=== PATIENT | male | born 1965 | race African-American/Black ===

== ENCOUNTER 2020-02-17 12:08 | Inpatient (IN) ==
[2020-02-17 13:30] LABS: Basophils # 0.1 10*3/uL (0.0-0.2); Basophils % 0.2 % (0.0-0.8); Eosinophils # 0.1 10*3/uL (0.0-0.87); Eosinophils % 0.6 % (0.00-10.9); Hematocrit 29.4 VOL% (42.0-52.0); Hemoglobin 9.4 GM/DL (14.0-18.0); Immature Granulocytes % 0.9 %; Lymphocytes # 0.4 10*3/uL (1.4-4.0); Lymphocytes % 1.8 % (21.2-54.2); Mean Corpuscular Volume 81.7 FL (87-102); Mean Platelet Volume 9.2 FL (9.6-12.0); Monocytes % 6.5 % (1.7-12.7); Platelet Count 385 T/CUMM (130-400); Red Cell Distribution Width 16.3 % (9.3-17.3); White Blood Count 21.6 T/CUMM (4-12)
[2020-02-17 13:54] LABS: Albumin 1.6 G/DL (3.4-5.0); Bilirubin,Total 0.8 MG/DL (0.2-1.0); Calcium 7.9 MG/DL (8.5-10.1); Osmolality,Calculated 283.7 MOS/KG (273-304); Total Protein 5.6 G/DL (6.4-8.3)
[2020-02-17] MEDS ORDERED: PIPERACILLIN/TAZOBACTAM 3,375 MG in SODIUM CHLORIDE 0.9% 100 ML IV STA (14:21)
[2020-02-17] MEDS ORDERED: VANCOMYCIN INJ 1,000 MG in SODIUM CHLORIDE 0.9% 250 ML IV STA (14:21)
[2020-02-17] MEDS ORDERED: FUROSEMIDE 40 MG/4 ML VIAL IV STA (14:26)
[2020-02-17] MEDS ORDERED: PIPERACILLIN/TAZOBACTAM 3,375 MG VIAL IV ONE (14:45)
[2020-02-17] MEDS ORDERED: VANCOMYCIN 1,000 MG VIAL ONE (14:45)
[2020-02-17] MEDS ORDERED: LIDOCAINE 1%/EPI INJ 20 ML VIAL ONE (15:11)
[2020-02-17] MEDS ORDERED: BUPIVACAINE MPF 0.25% 30 ML VIAL ONE ×2 (15:11→18:40)
[2020-02-17] MEDS ORDERED: ACETAMINOPHEN 325 MG TABLET PO PRN (16:06)
[2020-02-17] MEDS ORDERED: DOCUSATE SODIUM 100 MG CAPSULE PO PRN (16:06)
[2020-02-17] MEDS ORDERED: DEXTROSE 50% 25 GM/50 ML VIAL IV PRN (16:06)
[2020-02-17] MEDS ORDERED: CALCIUM CARBONATE CHEW 500 MG TABLET PO PRN (16:06)
[2020-02-17] MEDS ORDERED: LACTULOSE 20 GM/30 ML UDCUP PO PRN (16:06)
[2020-02-17] MEDS ORDERED: hydrALAZINE 20 MG/1 ML VIAL IV PRN (16:06)
[2020-02-17] MEDS ORDERED: ALUMINUM/MAGNES/SIMETH MAX STR 30 ML UDCUP PO PRN (16:06)
[2020-02-17] MEDS ORDERED: BISACODYL 5 MG TABLET PO PRN (16:06)
[2020-02-17] MEDS ORDERED: diphenhydrAMINE CAP 25 MG CAPSULE PO PRN (16:06)
[2020-02-17] MEDS ORDERED: SIMETHICONE CHEW 125 MG TABLET PO PRN (16:06)
[2020-02-17] MEDS ORDERED: ONDANSETRON 4 MG/2 ML VIAL IV PRN (16:06)
[2020-02-17] MEDS ORDERED: guaiFENesin/DM ER 600-30 MG TABLET PO PRN (16:06)
[2020-02-17] MEDS ORDERED: GLUCAGON 1 MG VIAL IM PRN (16:06)
[2020-02-17] MEDS ORDERED: ZALEPLON 5 MG CAPSULE PO PRN (16:06)
[2020-02-17] MEDS ORDERED: BUPIVACAINE 0.5% 50 ML VIAL ONE (16:31)
[2020-02-17 18:31] LABS: Band Neutrophils 2 % (0-10); Lymphocytes 1 % (20-55); Segmented Neutrophils 91 % (50-85); Total Cells Counted 100
[2020-02-17 18:32] LABS: Microcytosis Slight; Platelet Estimate Normal
[2020-02-17] MEDS ORDERED: propofoL 200 MG/20 ML VIAL IV ONE (18:38)
[2020-02-17] MEDS ORDERED: LIDOCAINE 2% 5 ML VIAL ONE (18:39)
[2020-02-17] MEDS ORDERED: fentaNYL 100 MCG/2 ML VIAL ONE (18:39)
[2020-02-17] MEDS ORDERED: MIDAZOLAM 2 MG/2 ML VIAL ONE (18:39)
[2020-02-17] MEDS ORDERED: DEXMEDETOMIDINE 200 MCG/2 ML VIAL ONE (18:40)
[2020-02-17] MEDS ORDERED: ETOMIDATE 40 MG/20 ML VIAL IV ONE (18:40)
[2020-02-17] MEDS ORDERED: DEXAMETHASONE 4 MG/1 ML VIAL ONE (18:40)
[2020-02-17] MEDS ORDERED: ONDANSETRON 4 MG/2 ML VIAL ONE (18:40)
[2020-02-17] MEDS ORDERED: KETOROLAC 30 MG/1 ML VIAL ONE (18:40)
[2020-02-17] MEDS ORDERED: SODIUM CHLORIDE 0.9% 250 ML IV ONE (18:41)
[2020-02-17] MEDS ORDERED: NALOXONE 0.4 MG/ML VIAL IV ONE ×2 (19:28→19:36)
[2020-02-17] MEDS ORDERED: VANCOMYCIN INJ 2,000 MG in SODIUM CHLORIDE 0.9% 500 ML IV PRN (19:58)
[2020-02-17] MEDS ORDERED: VANCOMYCIN INJ 1,500 MG in SODIUM CHLORIDE 0.9% 500 ML IV ONE (22:00)
[2020-02-18] MEDS: PIPERACILLIN/TAZOBACTAM 3,375 MG in SODIUM CHLORIDE 0.9% 100 ML IV SCH ×3 (01:06→18:44)
[2020-02-18 06:02] LABS: Basophils % 0.2 % (0.0-0.8); Hematocrit 29.4 VOL% (42.0-52.0); Hemoglobin 9.2 GM/DL (14.0-18.0); Immature Granulocytes % 1.5 %; Immature Granulocytes Absolute 0.28 #; Lymphocytes # 0.8 10*3/uL (1.4-4.0); Lymphocytes % 4.3 % (21.2-54.2); Mean Corpuscular HGB Conc 31.3 GM/DL (32-36); Mean Corpuscular Volume 83.3 FL (87-102); Mean Platelet Volume 9.8 FL (9.6-12.0); Monocytes % 6.3 % (1.7-12.7); Neutrophils % 87.7 % (38.7-73.9); Platelet Count 371 T/CUMM (130-400); Red Blood Count 3.53 MC/CUMM (3.8-5.5); Red Cell Distribution Width 16.8 % (9.3-17.3); White Blood Count 18.8 T/CUMM (4-12)
[2020-02-18 06:25] LABS: Band Neutrophils 2 % (0-10); Lymphocytes 4 % (20-55); Platelet Estimate Adequate; Segmented Neutrophils 88 % (50-85); Total Cells Counted 100
[2020-02-18 06:26] LABS: Acanthocytes Few; Hypochromasia 1+; Microcytosis Slight; Ovalocytes Slight
[2020-02-18 06:34] LABS: Albumin 1.3 G/DL (3.4-5.0); Bilirubin,Total 0.8 MG/DL (0.2-1.0); Calcium 8.2 MG/DL (8.5-10.1); Osmolality,Calculated 286.7 MOS/KG (273-304); Total Protein 5.8 G/DL (6.4-8.3)
[2020-02-18] MEDS: SODIUM HYPOCHLORITE 0.25% IRRIG 473 ML BOTTLE TOP SCH (10:07)
[2020-02-18] MEDS ORDERED: ASPIRIN EC 81 MG TABLET PO SCH (12:02)
[2020-02-18] MEDS ORDERED: ISOSORBIDE MONONITRATE 30 MG TABLET PO SCH (12:30)
[2020-02-18] MEDS ORDERED: ASPIRIN CHEW 81 MG TABLET PO ONE (12:58)
[2020-02-18] MEDS: carvediloL 6.25 MG TABLET PO SCH ×2 (13:00→20:24)
[2020-02-18] MEDS: POTASSIUM CHLORIDE 20 MEQ TABLET PO SCH (13:00)
[2020-02-18] MEDS: HEPARIN 5,000 UNIT/1 ML VIAL SUBCUT SCH ×2 (14:01→21:56)
[2020-02-18 15:59] LABS: Bilirubin,Urine Negative (Negative); Blood, Urine Negative (Negative); Glucose,Urine (UA) Negative (Negative); Ketones,Urine Negative (Negative); Mucus,Urine Moderate /LPF (Occasional); Nitrite,Urine Negative (Negative); Protein,Urine Negative; RBC,Urine 1 /HPF (0-4); Squamous Epithelial Cell,Urine Occasional /HPF (0-10); Urine Appearance CLEAR (Clear); Urine Color Yellow (Yellow); Urine Specific Gravity 1.024 (1.001-1.035); Urine Urobilinogen < 2.0 EU/DL (0.2-1.0); WBC,Urine 4 /HPF (0-6)
[2020-02-18] MEDS ORDERED: FUROSEMIDE 40 MG TABLET PO SCH ×2 (16:00→21:00)
[2020-02-18 17:14] LABS: Barbiturates Screen,Urine Negative (Negative); Benzodiazepines Screen,Urine Positive (Negative); Cannabinoid Screen,Urine Negative (Negative); Opiate Screen,Urine Negative (Negative); Phencyclidine Screen,Urine Negative (Negative)
[2020-02-18] MEDS: FUROSEMIDE 40 MG/4 ML VIAL IV SCH (17:29)
[2020-02-18] MEDS: TAMSULOSIN 0.4 MG CAPSULE PO SCH (20:22)
[2020-02-18] MEDS ORDERED: ROSUVASTATIN 20 MG TABLET PO SCH (21:00)
[2020-02-18] MEDS ORDERED: DEXTROSE 50% 25 GM/50 ML VIAL IV PRN (21:46)
[2020-02-19] MEDS: PIPERACILLIN/TAZOBACTAM 3,375 MG in SODIUM CHLORIDE 0.9% 100 ML IV SCH ×3 (01:55→18:03)
[2020-02-19] MEDS: HEPARIN 5,000 UNIT/1 ML VIAL SUBCUT SCH ×3 (05:15→21:50)
[2020-02-19 06:22] LABS: Basophils % 0.1 % (0.0-0.8); Hematocrit 32.4 VOL% (42.0-52.0); Hemoglobin 10.1 GM/DL (14.0-18.0); Immature Granulocytes Absolute 0.22 #; Lymphocytes # 1.1 10*3/uL (1.4-4.0); Lymphocytes % 5.3 % (21.2-54.2); Mean Corpuscular HGB Conc 31.2 GM/DL (32-36); Mean Corpuscular Volume 83.5 FL (87-102); Mean Platelet Volume 9.4 FL (9.6-12.0); Monocytes % 6.8 % (1.7-12.7); Neutrophils % 86.8 % (38.7-73.9); Platelet Count 431 T/CUMM (130-400); Red Blood Count 3.88 MC/CUMM (3.8-5.5); Red Cell Distribution Width 16.9 % (9.3-17.3); White Blood Count 21.1 T/CUMM (4-12)
[2020-02-19 06:47] LABS: Acanthocytes Few; Hypochromasia 1+; Lymphocytes 8 % (20-55); Microcytosis 1+; Ovalocytes Slight; Platelet Estimate Adequate; Segmented Neutrophils 84 % (50-85); Total Cells Counted 100
[2020-02-19 06:48] LABS: Calcium 7.7 MG/DL (8.5-10.1); Osmolality,Calculated 284.8 MOS/KG (273-304)
[2020-02-19 06:51] LABS: Albumin 1.2 G/DL (3.4-5.0); Bilirubin,Total 0.7 MG/DL (0.2-1.0); Calcium 7.8 MG/DL (8.5-10.1); Osmolality,Calculated 287.7 MOS/KG (273-304); Total Protein 5.2 G/DL (6.4-8.3)
[2020-02-19] MEDS: POTASSIUM CHLORIDE 20 MEQ TABLET PO SCH (09:30)
[2020-02-19] MEDS: ASPIRIN EC 81 MG TABLET PO SCH (09:30)
[2020-02-19] MEDS: carvediloL 6.25 MG TABLET PO SCH ×2 (09:30→21:43)
[2020-02-19] MEDS: FINASTERIDE 5 MG TABLET PO SCH (09:30)
[2020-02-19] MEDS: FUROSEMIDE 40 MG/4 ML VIAL IV SCH (09:38)
[2020-02-19] MEDS: SODIUM HYPOCHLORITE 0.25% IRRIG 473 ML BOTTLE TOP SCH (09:38)
[2020-02-19] MEDS: MORPHINE 4 MG/1 ML VIAL IV PRN (15:59)
[2020-02-19] MEDS ORDERED: FUROSEMIDE 40 MG TABLET PO SCH (16:00)
[2020-02-19] MEDS ORDERED: HEPARIN/NACL 0.9% 2 UNITS/ML 500 ML IV ONE (19:04)
[2020-02-19] MEDS ORDERED: fentaNYL INJ 1,250 MCG in SODIUM CHLORIDE 0.9% 225 ML IV PRN (21:04)
[2020-02-19] MEDS ORDERED: LIDOCAINE 2% 5 ML VIAL ONE (21:12)
[2020-02-19] MEDS ORDERED: MIDAZOLAM 2 MG/2 ML VIAL ONE (21:12)
[2020-02-19] MEDS ORDERED: fentaNYL 100 MCG/2 ML VIAL ONE (21:12)
[2020-02-19] MEDS ORDERED: ePHEDrine 50 MG/ML VIAL ONE (21:13)
[2020-02-19] MEDS ORDERED: propofoL 200 MG/20 ML VIAL IV ONE (21:13)
[2020-02-19] MEDS ORDERED: SEVOFLURANE 1 UNIT/15 MINUTE INH ONE (21:13)
[2020-02-19] MEDS ORDERED: ROCURONIUM 100 MG/10 ML VIAL IV ONE (21:14)
[2020-02-19] MEDS ORDERED: ETOMIDATE 40 MG/20 ML VIAL IV ONE (21:14)
[2020-02-19] MEDS ORDERED: SODIUM CHLORIDE 0.9% 1,000 ML IV ONE (21:14)
[2020-02-19] MEDS ORDERED: SUCCINYLCHOLINE 200 MG/10 ML VIAL ONE (21:14)
[2020-02-19] MEDS ORDERED: LACTATED RINGERS 1,000 ML IV ONE (21:14)
[2020-02-19 21:19] LABS: ABG Base Excess -11.6 MMOL/L (-2.5-2.5); ABG HCO3 14.8 MMOL/L (20-26); ABG Oxygen Saturation 99.3 % (95-100); ABG PCO2 35.1 MM HG (35-48); ABG PH 7.242 (7.35-7.45); ABG PO2 283.2 MM HG (80-95); ABG TCO2 15.8 MMOL/L (23-27)
[2020-02-19] MEDS ORDERED: PIPERACILLIN/TAZOBACTAM 3,375 MG in SODIUM CHLORIDE 0.9% 100 ML IV SCH (21:30)
[2020-02-19] MEDS ORDERED: SODIUM BICARBONATE 50 MEQ/50 ML VIAL IV ONE ×2 (21:32→21:33)
[2020-02-19] MEDS: TAMSULOSIN 0.4 MG CAPSULE PO SCH (21:43)
[2020-02-19] MEDS: LACTATED RINGERS 1,000 ML IV SCH (21:43)
[2020-02-19] MEDS: PANTOPRAZOLE 40 MG VIAL IV SCH (21:43)
[2020-02-20] MEDS: PIPERACILLIN/TAZOBACTAM 3,375 MG in SODIUM CHLORIDE 0.9% 100 ML IV SCH ×2 (01:45→14:15)
[2020-02-20 03:23] LABS: ABG Base Excess -9.3 MMOL/L (-2.5-2.5); ABG HCO3 17.1 MMOL/L (20-26); ABG PCO2 34.1 MM HG (35-48); ABG PH 7.293 (7.35-7.45); ABG TCO2 14.8 MMOL/L (23-27)
[2020-02-20 03:39] LABS: Basophils % 0.4 % (0.0-0.8); Hematocrit 37.7 VOL% (42.0-52.0); Hemoglobin 11.6 GM/DL (14.0-18.0); Immature Granulocytes % 0.3 %; Immature Granulocytes Absolute 0.03 #; Lymphocytes # 0.6 10*3/uL (1.4-4.0); Lymphocytes % 5.3 % (21.2-54.2); Mean Corpuscular HGB Conc 30.8 GM/DL (32-36); Mean Corpuscular Volume 82.3 FL (87-102); Mean Platelet Volume 9.3 FL (9.6-12.0); Monocytes % 5.5 % (1.7-12.7); Neutrophils % 88.5 % (38.7-73.9); Platelet Count 442 T/CUMM (130-400); Red Blood Count 4.58 MC/CUMM (3.8-5.5); White Blood Count 11.1 T/CUMM (4-12)
[2020-02-20 03:41] LABS: Albumin 1.2 G/DL (3.4-5.0); Bilirubin,Total 0.4 MG/DL (0.2-1.0); Calcium 7.5 MG/DL (8.5-10.1); Osmolality,Calculated 293.4 MOS/KG (273-304); Total Protein 5.3 G/DL (6.4-8.3)
[2020-02-20 04:02] LABS: Lymphocytes 6 % (20-55); Platelet Estimate Adequate; Segmented Neutrophils 89 % (50-85); Total Cells Counted 100
[2020-02-20 04:03] LABS: Acanthocytes Few; Hypochromasia Slight
[2020-02-20] MEDS: HEPARIN 5,000 UNIT/1 ML VIAL SUBCUT SCH ×3 (06:02→22:23)
[2020-02-20] MEDS: LACTATED RINGERS 1,000 ML IV SCH ×2 (06:53→16:53)
[2020-02-20] MEDS: ASPIRIN EC 81 MG TABLET PO SCH (08:04)
[2020-02-20] MEDS: carvediloL 6.25 MG TABLET PO SCH ×2 (08:04→22:11)
[2020-02-20] MEDS: POTASSIUM CHLORIDE 20 MEQ TABLET PO SCH (08:04)
[2020-02-20] MEDS: FINASTERIDE 5 MG TABLET PO SCH (08:05)
[2020-02-20] MEDS: PANTOPRAZOLE 40 MG VIAL IV SCH ×2 (08:19→22:23)
[2020-02-20] MEDS: SODIUM HYPOCHLORITE 0.25% IRRIG 473 ML BOTTLE TOP SCH (08:20)
[2020-02-20 08:24] LABS: ABG Base Excess -8.6 MMOL/L (-2.5-2.5); ABG HCO3 17.6 MMOL/L (20-26); ABG PCO2 36.9 MM HG (35-48); ABG PH 7.283 (7.35-7.45); ABG TCO2 15.8 MMOL/L (23-27)
[2020-02-20] MEDS: PHENYLEPHRINE DRIP 40 MG/250 ML PREMIX IV PRN (08:52)
[2020-02-20 13:06] LABS: ABG Base Excess -8.3 MMOL/L (-2.5-2.5); ABG HCO3 17.8 MMOL/L (20-26); ABG Oxygen Saturation 99.1 % (95-100); ABG PCO2 37.3 MM HG (35-48); ABG PH 7.285 (7.35-7.45); ABG TCO2 15.9 MMOL/L (23-27)
[2020-02-20] MEDS: TAMSULOSIN 0.4 MG CAPSULE PO SCH (22:11)
[2020-02-20] MEDS: MORPHINE 4 MG/1 ML VIAL IV PRN (22:32)
[2020-02-21] MEDS: PIPERACILLIN/TAZOBACTAM 3,375 MG in SODIUM CHLORIDE 0.9% 100 ML IV SCH ×2 (02:53→14:17)
[2020-02-21] MEDS: LACTATED RINGERS 1,000 ML IV SCH ×2 (04:39→14:07)
[2020-02-21 04:43] LABS: Basophils % 0.2 % (0.0-0.8); Eosinophils % 0.1 % (0.00-10.9); Hematocrit 37.8 VOL% (42.0-52.0); Hemoglobin 11.6 GM/DL (14.0-18.0); Immature Granulocytes % 2.2 %; Immature Granulocytes Absolute 0.45 #; Lymphocytes # 0.8 10*3/uL (1.4-4.0); Lymphocytes % 3.6 % (21.2-54.2); Mean Corpuscular HGB Conc 30.7 GM/DL (32-36); Mean Corpuscular Volume 82.4 FL (87-102); Mean Platelet Volume 9.2 FL (9.6-12.0); Monocytes % 5.4 % (1.7-12.7); Neutrophils % 88.5 % (38.7-73.9); Platelet Count 523 T/CUMM (130-400); Red Blood Count 4.59 MC/CUMM (3.8-5.5); Red Cell Distribution Width 17.1 % (9.3-17.3); White Blood Count 20.8 T/CUMM (4-12)
[2020-02-21 05:11] LABS: Band Neutrophils 5 % (0-10); Lymphocytes 6 % (20-55); Platelet Estimate Adequate; Segmented Neutrophils 84 % (50-85); Total Cells Counted 100
[2020-02-21 05:12] LABS: Hypochromasia Slight
[2020-02-21 05:22] LABS: Albumin 1.1 G/DL (3.4-5.0); Bilirubin,Total 0.4 MG/DL (0.2-1.0); Calcium 7.6 MG/DL (8.5-10.1); Osmolality,Calculated 291.4 MOS/KG (273-304); Total Protein 5.4 G/DL (6.4-8.3)
[2020-02-21] MEDS: HEPARIN 5,000 UNIT/1 ML VIAL SUBCUT SCH ×3 (05:24→23:12)
[2020-02-21] MEDS: ALBUMIN 25% 25 GM in PREMIX 1 EACH IV SCH ×2 (05:24→12:58)
[2020-02-21] MEDS: PANTOPRAZOLE 40 MG VIAL IV SCH ×2 (09:19→23:11)
[2020-02-21] MEDS: ASPIRIN EC 81 MG TABLET PO SCH (09:40)
[2020-02-21] MEDS: FINASTERIDE 5 MG TABLET PO SCH (09:40)
[2020-02-21] MEDS: carvediloL 6.25 MG TABLET PO SCH ×2 (09:40→20:56)
[2020-02-21] MEDS: POTASSIUM CHLORIDE 20 MEQ TABLET PO SCH (09:40)
[2020-02-21] MEDS: SODIUM HYPOCHLORITE 0.25% IRRIG 473 ML BOTTLE TOP SCH (09:41)
[2020-02-21] MEDS: HYDROmorphone 2 MG/1 ML VIAL IV PRN (12:55)
[2020-02-21] MEDS: PHENYLEPHRINE DRIP 40 MG/250 ML PREMIX IV PRN (14:00)
[2020-02-21] MEDS: ALBUTEROL 1.25 MG/3 ML NEB RESP TX SCH ×2 (14:13→19:43)
[2020-02-21] MEDS: TAMSULOSIN 0.4 MG CAPSULE PO SCH (20:57)
[2020-02-22] MEDS: LACTATED RINGERS 1,000 ML IV SCH ×3 (00:01→20:14)
[2020-02-22] MEDS: HYDROmorphone 2 MG/1 ML VIAL IV PRN ×2 (00:02→04:27)
[2020-02-22] MEDS: ALBUTEROL 1.25 MG/3 ML NEB RESP TX SCH ×4 (01:26→19:55)
[2020-02-22] MEDS: PIPERACILLIN/TAZOBACTAM 3,375 MG in SODIUM CHLORIDE 0.9% 100 ML IV SCH ×2 (01:53→14:20)
[2020-02-22 04:54] LABS: Basophils % 0.1 % (0.0-0.8); Eosinophils % 0.1 % (0.00-10.9); Hematocrit 29.9 VOL% (42.0-52.0); Immature Granulocytes % 3.6 %; Immature Granulocytes Absolute 0.51 #; Lymphocytes % 7.2 % (21.2-54.2); Mean Corpuscular HGB Conc 30.4 GM/DL (32-36); Mean Platelet Volume 9.1 FL (9.6-12.0); Monocytes % 6.6 % (1.7-12.7); Neutrophils % 82.4 % (38.7-73.9); Red Cell Distribution Width 17.2 % (9.3-17.3); White Blood Count 14.1 T/CUMM (4-12)
[2020-02-22 04:55] LABS: Hemoglobin 9.1 GM/DL (14.0-18.0); Platelet Count 392 T/CUMM (130-400); Red Blood Count 3.56 MC/CUMM (3.8-5.5)
[2020-02-22 05:10] LABS: Albumin 1.3 G/DL (3.4-5.0); Bilirubin,Total 0.4 MG/DL (0.2-1.0); Calcium 7.3 MG/DL (8.5-10.1); Osmolality,Calculated 292.3 MOS/KG (273-304)
[2020-02-22 05:33] LABS: Band Neutrophils 2 % (0-10); Lymphocytes 4 % (20-55); Segmented Neutrophils 86 % (50-85); Total Cells Counted 100
[2020-02-22 05:34] LABS: Acanthocytes Few
[2020-02-22 05:35] LABS: Burr Cells 1+; Hypochromasia 1+; Microcytosis 1+; Platelet Estimate Normal
[2020-02-22] MEDS: HEPARIN 5,000 UNIT/1 ML VIAL SUBCUT SCH ×2 (05:58→14:20)
[2020-02-22] MEDS: SODIUM HYPOCHLORITE 0.25% IRRIG 473 ML BOTTLE TOP SCH (10:05)
[2020-02-22] MEDS: ASPIRIN EC 81 MG TABLET PO SCH (10:10)
[2020-02-22] MEDS: carvediloL 6.25 MG TABLET PO SCH ×2 (10:10→20:13)
[2020-02-22] MEDS: POTASSIUM CHLORIDE 20 MEQ TABLET PO SCH (10:11)
[2020-02-22] MEDS: PANTOPRAZOLE 40 MG VIAL IV SCH ×2 (10:11→20:13)
[2020-02-22] MEDS: FINASTERIDE 5 MG TABLET PO SCH (10:11)
[2020-02-22] MEDS: TAMSULOSIN 0.4 MG CAPSULE PO SCH (20:13)
[2020-02-23] MEDS: HEPARIN 5,000 UNIT/1 ML VIAL SUBCUT SCH ×4 (00:30→21:14)
[2020-02-23] MEDS: ALBUTEROL 1.25 MG/3 ML NEB RESP TX SCH ×4 (01:22→19:59)
[2020-02-23] MEDS: PIPERACILLIN/TAZOBACTAM 3,375 MG in SODIUM CHLORIDE 0.9% 100 ML IV SCH ×2 (02:07→17:11)
[2020-02-23] MEDS: HYDROmorphone 2 MG/1 ML VIAL IV PRN ×2 (03:01→06:53)
[2020-02-23 04:55] LABS: Basophils % 0.2 % (0.0-0.8); Eosinophils # 0.1 10*3/uL (0.0-0.87); Eosinophils % 0.8 % (0.00-10.9); Hematocrit 31.2 VOL% (42.0-52.0); Hemoglobin 9.9 GM/DL (14.0-18.0); Immature Granulocytes % 1.4 %; Immature Granulocytes Absolute 0.13 #; Lymphocytes % 9.9 % (21.2-54.2); Mean Corpuscular HGB Conc 31.7 GM/DL (32-36); Mean Corpuscular Volume 79.8 FL (87-102); Mean Platelet Volume 9.1 FL (9.6-12.0); Monocytes % 7.4 % (1.7-12.7); Neutrophils % 80.3 % (38.7-73.9); Platelet Count 416 T/CUMM (130-400); Red Blood Count 3.91 MC/CUMM (3.8-5.5); Red Cell Distribution Width 17.2 % (9.3-17.3); White Blood Count 9.6 T/CUMM (4-12)
[2020-02-23 05:18] LABS: Albumin 1.4 G/DL (3.4-5.0); Bilirubin,Total 0.6 MG/DL (0.2-1.0); Calcium 7.8 MG/DL (8.5-10.1); Osmolality,Calculated 297.3 MOS/KG (273-304); Total Protein 5.8 G/DL (6.4-8.3)
[2020-02-23] MEDS ORDERED: ALBUTEROL 1.25 MG/3 ML NEB RESP TX ONE ×3 (07:04→22:36)
[2020-02-23] MEDS: PANTOPRAZOLE 40 MG VIAL IV SCH ×2 (09:13→21:13)
[2020-02-23] MEDS: ASPIRIN EC 81 MG TABLET PO SCH (09:14)
[2020-02-23] MEDS: FINASTERIDE 5 MG TABLET PO SCH (09:14)
[2020-02-23] MEDS: POTASSIUM CHLORIDE 20 MEQ TABLET PO SCH (09:14)
[2020-02-23] MEDS: carvediloL 6.25 MG TABLET PO SCH ×2 (09:15→21:14)
[2020-02-23] MEDS: LACTATED RINGERS 1,000 ML IV SCH (09:20)
[2020-02-23] MEDS: SODIUM HYPOCHLORITE 0.25% IRRIG 473 ML BOTTLE TOP SCH (10:38)
[2020-02-23] MEDS: TAMSULOSIN 0.4 MG CAPSULE PO SCH (21:14)
[2020-02-24] MEDS: PIPERACILLIN/TAZOBACTAM 3,375 MG in SODIUM CHLORIDE 0.9% 100 ML IV SCH ×2 (01:37→13:41)
[2020-02-24] MEDS: ALBUTEROL 1.25 MG/3 ML NEB RESP TX SCH ×4 (01:53→19:19)
[2020-02-24 06:57] LABS: Basophils % 0.1 % (0.0-0.8); Eosinophils # 0.1 10*3/uL (0.0-0.87); Eosinophils % 1.6 % (0.00-10.9); Hematocrit 29.5 VOL% (42.0-52.0); Hemoglobin 9.5 GM/DL (14.0-18.0); Immature Granulocytes % 1.9 %; Immature Granulocytes Absolute 0.16 #; Lymphocytes # 1.2 10*3/uL (1.4-4.0); Lymphocytes % 13.7 % (21.2-54.2); Mean Corpuscular HGB Conc 32.2 GM/DL (32-36); Mean Corpuscular Volume 80.6 FL (87-102); Mean Platelet Volume 9.1 FL (9.6-12.0); Monocytes % 9.7 % (1.7-12.7); Platelet Count 412 T/CUMM (130-400); Red Blood Count 3.66 MC/CUMM (3.8-5.5); Red Cell Distribution Width 17.2 % (9.3-17.3); White Blood Count 8.5 T/CUMM (4-12)
[2020-02-24] MEDS: HYDROmorphone 2 MG/1 ML VIAL IV PRN ×2 (06:57→17:46)
[2020-02-24] MEDS: HEPARIN 5,000 UNIT/1 ML VIAL SUBCUT SCH ×3 (06:58→20:48)
[2020-02-24 07:14] LABS: Calcium 8.4 MG/DL (8.5-10.1); Osmolality,Calculated 298.1 MOS/KG (273-304)
[2020-02-24] MEDS ORDERED: ALBUTEROL 1.25 MG/3 ML NEB RESP TX ONE (07:19)
[2020-02-24] MEDS: ASPIRIN EC 81 MG TABLET PO SCH (08:20)
[2020-02-24] MEDS: carvediloL 6.25 MG TABLET PO SCH ×2 (08:20→20:50)
[2020-02-24] MEDS: PANTOPRAZOLE 40 MG VIAL IV SCH ×2 (08:20→20:50)
[2020-02-24] MEDS: FINASTERIDE 5 MG TABLET PO SCH (08:20)
[2020-02-24] MEDS: LACTATED RINGERS 1,000 ML IV SCH ×2 (08:21→08:26)
[2020-02-24] MEDS: SODIUM HYPOCHLORITE 0.25% IRRIG 473 ML BOTTLE TOP SCH (14:38)
[2020-02-24] MEDS: TAMSULOSIN 0.4 MG CAPSULE PO SCH (20:49)
[2020-02-25] MEDS: ALBUTEROL 1.25 MG/3 ML NEB RESP TX SCH ×4 (00:24→19:05)
[2020-02-25] MEDS: PIPERACILLIN/TAZOBACTAM 3,375 MG in SODIUM CHLORIDE 0.9% 100 ML IV SCH (01:35)
[2020-02-25] MEDS: HEPARIN 5,000 UNIT/1 ML VIAL SUBCUT SCH ×3 (05:18→21:09)
[2020-02-25 06:24] LABS: Basophils % 0.2 % (0.0-0.8); Eosinophils # 0.2 10*3/uL (0.0-0.87); Eosinophils % 1.9 % (0.00-10.9); Hematocrit 28.5 VOL% (42.0-52.0); Hemoglobin 9.1 GM/DL (14.0-18.0); Immature Granulocytes % 1.2 %; Immature Granulocytes Absolute 0.11 #; Lymphocytes # 1.1 10*3/uL (1.4-4.0); Mean Corpuscular HGB Conc 31.9 GM/DL (32-36); Mean Corpuscular Volume 81.9 FL (87-102); Mean Platelet Volume 8.9 FL (9.6-12.0); Monocytes % 8.6 % (1.7-12.7); Neutrophils % 76.1 % (38.7-73.9); Platelet Count 361 T/CUMM (130-400); Red Blood Count 3.48 MC/CUMM (3.8-5.5); Red Cell Distribution Width 17.1 % (9.3-17.3); White Blood Count 9.4 T/CUMM (4-12)
[2020-02-25 06:47] LABS: Calcium 8.4 MG/DL (8.5-10.1); Osmolality,Calculated 297.3 MOS/KG (273-304)
[2020-02-25] MEDS ORDERED: CLARITHROMYCIN 500 MG TABLET PO SCH (09:30)
[2020-02-25] MEDS: ASPIRIN EC 81 MG TABLET PO SCH (09:42)
[2020-02-25] MEDS: PANTOPRAZOLE 40 MG VIAL IV SCH ×2 (09:42→21:09)
[2020-02-25] MEDS: FINASTERIDE 5 MG TABLET PO SCH (09:42)
[2020-02-25] MEDS: carvediloL 6.25 MG TABLET PO SCH ×2 (09:42→21:09)
[2020-02-25] MEDS: SODIUM HYPOCHLORITE 0.25% IRRIG 473 ML BOTTLE TOP SCH (09:43)
[2020-02-25] MEDS: AMOXICILLIN 500 MG CAPSULE PO SCH ×2 (12:02→21:07)
[2020-02-25] MEDS: CLARITHROMYCIN 500 MG TABLET PO SCH ×2 (12:02→21:08)
[2020-02-25] MEDS: TAMSULOSIN 0.4 MG CAPSULE PO SCH (21:09)
[2020-02-25] MEDS: SODIUM BICARBONATE 650 MG TABLET PO SCH (21:09)
[2020-02-26] MEDS: ALBUTEROL 1.25 MG/3 ML NEB RESP TX SCH ×5 (00:35→18:55)
[2020-02-26] MEDS: HEPARIN 5,000 UNIT/1 ML VIAL SUBCUT SCH ×3 (07:41→23:14)
[2020-02-26] MEDS: carvediloL 6.25 MG TABLET PO SCH ×2 (09:16→23:11)
[2020-02-26] MEDS: AMOXICILLIN 500 MG CAPSULE PO SCH ×2 (09:16→23:11)
[2020-02-26] MEDS: CLARITHROMYCIN 500 MG TABLET PO SCH ×2 (09:16→23:12)
[2020-02-26] MEDS: ASPIRIN EC 81 MG TABLET PO SCH (09:16)
[2020-02-26] MEDS: SODIUM BICARBONATE 650 MG TABLET PO SCH ×2 (09:16→23:10)
[2020-02-26] MEDS: FINASTERIDE 5 MG TABLET PO SCH (09:16)
[2020-02-26] MEDS: PANTOPRAZOLE 40 MG VIAL IV SCH ×2 (09:18→23:10)
[2020-02-26] MEDS: SODIUM HYPOCHLORITE 0.25% IRRIG 473 ML BOTTLE TOP SCH (09:19)
[2020-02-26] MEDS: TAMSULOSIN 0.4 MG CAPSULE PO SCH (23:10)
[2020-02-27] MEDS: ALBUTEROL 1.25 MG/3 ML NEB RESP TX SCH ×4 (01:50→18:54)
[2020-02-27] MEDS: HEPARIN 5,000 UNIT/1 ML VIAL SUBCUT SCH ×3 (05:15→22:57)
[2020-02-27] MEDS: AMOXICILLIN 500 MG CAPSULE PO SCH ×2 (09:17→22:54)
[2020-02-27] MEDS: CLARITHROMYCIN 500 MG TABLET PO SCH ×2 (09:17→22:54)
[2020-02-27] MEDS: SODIUM BICARBONATE 650 MG TABLET PO SCH ×2 (09:18→22:55)
[2020-02-27] MEDS: carvediloL 6.25 MG TABLET PO SCH ×2 (09:18→22:56)
[2020-02-27] MEDS: PANTOPRAZOLE 40 MG VIAL IV SCH ×2 (09:18→22:50)
[2020-02-27] MEDS: ASPIRIN EC 81 MG TABLET PO SCH (09:18)
[2020-02-27] MEDS: MULTIVITAMIN (CENTRUM) TABLET PO SCH (09:18)
[2020-02-27] MEDS: FINASTERIDE 5 MG TABLET PO SCH (09:18)
[2020-02-27] MEDS: SODIUM HYPOCHLORITE 0.25% IRRIG 473 ML BOTTLE TOP SCH (09:19)
[2020-02-27] MEDS: FUROSEMIDE 40 MG/4 ML VIAL IV SCH (15:43)
[2020-02-27] MEDS: TAMSULOSIN 0.4 MG CAPSULE PO SCH (22:56)
[2020-02-28] MEDS: ALBUTEROL 1.25 MG/3 ML NEB RESP TX SCH ×3 (00:48→13:15)
[2020-02-28 04:52] LABS: Basophils % 0.3 % (0.0-0.8); Eosinophils # 0.3 10*3/uL (0.0-0.87); Eosinophils % 2.3 % (0.00-10.9); Hematocrit 29.2 VOL% (42.0-52.0); Hemoglobin 8.8 GM/DL (14.0-18.0); Immature Granulocytes % 1.3 %; Immature Granulocytes Absolute 0.14 #; Lymphocytes # 1.1 10*3/uL (1.4-4.0); Lymphocytes % 10.5 % (21.2-54.2); Mean Corpuscular HGB Conc 30.1 GM/DL (32-36); Mean Corpuscular Volume 84.1 FL (87-102); Mean Platelet Volume 9.3 FL (9.6-12.0); Monocytes % 7.6 % (1.7-12.7); Platelet Count 327 T/CUMM (130-400); Red Blood Count 3.47 MC/CUMM (3.8-5.5); Red Cell Distribution Width 16.7 % (9.3-17.3); White Blood Count 10.7 T/CUMM (4-12)
[2020-02-28 05:12] LABS: Calcium 8.1 MG/DL (8.5-10.1); Osmolality,Calculated 294.3 MOS/KG (273-304)
[2020-02-28] MEDS: HEPARIN 5,000 UNIT/1 ML VIAL SUBCUT SCH ×2 (05:24→13:51)
[2020-02-28] MEDS: AMOXICILLIN 500 MG CAPSULE PO SCH (08:38)
[2020-02-28] MEDS: FINASTERIDE 5 MG TABLET PO SCH (08:38)
[2020-02-28] MEDS: CLARITHROMYCIN 500 MG TABLET PO SCH (08:38)
[2020-02-28] MEDS: ASPIRIN EC 81 MG TABLET PO SCH (08:39)
[2020-02-28] MEDS: carvediloL 6.25 MG TABLET PO SCH (08:39)
[2020-02-28] MEDS: MULTIVITAMIN (CENTRUM) TABLET PO SCH (08:39)
[2020-02-28] MEDS: PANTOPRAZOLE 40 MG VIAL IV SCH (08:40)
[2020-02-28] MEDS: FUROSEMIDE 40 MG/4 ML VIAL IV SCH ×2 (08:42→18:06)
[2020-02-28] MEDS: SODIUM HYPOCHLORITE 0.25% IRRIG 473 ML BOTTLE TOP SCH (08:42)
[2020-02-28] MEDS: SODIUM BICARBONATE 650 MG TABLET PO SCH (10:38)
[2020-02-28 17:01] VITALS: BP 148/82
[2020-02-28] MEDS ORDERED: PANTOPRAZOLE 40 MG TABLET PO SCH (21:00)
== END 2020-02-28 18:08 | disposition swing bed (61) | DRG 853 ==
LOC: N.ED 12:08 → SUATTDRO 15:19 → N.EDINP 15:19 → N.3E 17:00 → N.ICU 02-19 20:10 → N.5E 02-22 15:03
PROVIDERS: ADMIT Hospitalist; ATTEND Internal Medicine

== ENCOUNTER 2021-07-02 14:53 | Inpatient (IN) ==
[2021-07-02 15:22] LABS: Basophils # 0.1 10*3/uL (0.0-0.2); Basophils % 1.4 % (0.0-0.8); Eosinophils # 0.2 10*3/uL (0.0-0.87); Hematocrit 33.8 VOL% (42.0-52.0); Hemoglobin 10.4 GM/DL (14.0-18.0); Immature Granulocytes % 0.3 %; Immature Granulocytes Absolute 0.02 #; Lymphocytes # 1.2 10*3/uL (1.4-4.0); Lymphocytes % 20.6 % (21.2-54.2); Mean Corpuscular HGB Conc 30.8 GM/DL (32-36); Mean Corpuscular Volume 88.3 FL (87-102); Mean Platelet Volume 9.7 FL (9.6-12.0); Monocytes % 9.4 % (1.7-12.7); Neutrophils % 65.3 % (38.7-73.9); Platelet Count 287 T/CUMM (130-400); Red Blood Count 3.83 MC/CUMM (3.8-5.5); Red Cell Distribution Width 14.4 % (9.3-17.3); White Blood Count 5.7 T/CUMM (4-12)
[2021-07-02 15:32] LABS: INR 1.1; PT Patient Result 12.6 SECS (10.5-12.0); Partial Thromboplastin Time 27.1 SECS (23.8-32.1)
[2021-07-02 15:49] LABS: Bilirubin,Total 0.4 MG/DL (0.20-1.00); Calcium 8.8 MG/DL (8.5-10.1); Osmolality,Calculated 299.5 MOS/KG (273-304); Potassium 4.4 MMOL/L (3.5-5.1); Total Protein 6.4 G/DL (6.4-8.2)
[2021-07-02] MEDS ORDERED: hydrALAZINE 20 MG/1 ML VIAL IV STA (19:25)
[2021-07-02] MEDS ORDERED: FUROSEMIDE 40 MG/4 ML VIAL IV STA (19:25)
[2021-07-02 19:42] LABS: ABG Base Excess -9.4 MMOL/L (-2.5-2.5); ABG HCO3 16.9 MMOL/L (20-26); ABG Oxygen Saturation 97.7 % (95-100); ABG PCO2 25.6 MM HG (35-48); ABG PH 7.366 (7.35-7.45); ABG PO2 97.6 MM HG (80-95); ABG TCO2 13.3 MMOL/L (23-27)
[2021-07-02] MEDS ORDERED: GLUCAGON 1 MG VIAL IM PRN (21:21)
[2021-07-02] MEDS: HEPARIN 5,000 UNIT/1 ML VIAL SUBCUT SCH (22:25)
[2021-07-02] MEDS ORDERED: DEXTROSE 10% 250 ML BAG IV PRN (22:40)
[2021-07-02] MEDS: carvediloL 12.5 MG TABLET PO SCH (23:39)
[2021-07-03 01:06] LABS: Basophils # 0.1 10*3/uL (0.0-0.2); Basophils % 1.5 % (0.0-0.8); Eosinophils # 0.2 10*3/uL (0.0-0.87); Hematocrit 36.1 VOL% (42.0-52.0); Hemoglobin 11.1 GM/DL (14.0-18.0); Immature Granulocytes % 0.5 %; Immature Granulocytes Absolute 0.03 #; Lymphocytes # 1.4 10*3/uL (1.4-4.0); Lymphocytes % 22.5 % (21.2-54.2); Mean Corpuscular HGB Conc 30.7 GM/DL (32-36); Mean Platelet Volume 9.3 FL (9.6-12.0); Monocytes % 10.9 % (1.7-12.7); Neutrophils % 60.6 % (38.7-73.9); Platelet Count 312 T/CUMM (130-400); Red Cell Distribution Width 14.3 % (9.3-17.3); White Blood Count 6.1 T/CUMM (4-12)
[2021-07-03 01:31] LABS: Bilirubin,Total 0.6 MG/DL (0.20-1.00); Calcium 9.2 MG/DL (8.5-10.1); Osmolality,Calculated 297.5 MOS/KG (273-304); Potassium 4.2 MMOL/L (3.5-5.1); Total Protein 7.1 G/DL (6.4-8.2)
[2021-07-03] MEDS: INSULIN LISPRO 100 UNIT/ML SUBCUT SCH ×4 (08:10→21:56)
[2021-07-03] MEDS: ISOSORBIDE MONONITRATE 30 MG TABLET PO SCH (08:40)
[2021-07-03] MEDS: carvediloL 12.5 MG TABLET PO SCH ×2 (08:40→20:44)
[2021-07-03] MEDS: PANTOPRAZOLE 40 MG TABLET PO SCH (08:40)
[2021-07-03] MEDS: hydrALAZINE 25 MG TABLET PO SCH ×3 (08:40→20:44)
[2021-07-03] MEDS: HEPARIN 5,000 UNIT/1 ML VIAL SUBCUT SCH ×3 (08:41→21:57)
[2021-07-03] MEDS: SPIRONOLACTONE 50 MG TABLET PO SCH (08:48)
[2021-07-03] MEDS: FUROSEMIDE 40 MG/4 ML VIAL IV SCH (08:49)
[2021-07-03] MEDS ORDERED: SODIUM BICARBONATE 650 MG TABLET PO SCH (09:00)
[2021-07-03] MEDS: SODIUM BICARBONATE 650 MG TABLET PO SCH (20:44)
[2021-07-03] MEDS: TAMSULOSIN 0.4 MG CAPSULE PO SCH (20:44)
[2021-07-04 05:59] LABS: Basophils % 0.8 % (0.0-0.8); Eosinophils # 0.2 10*3/uL (0.0-0.87); Eosinophils % 4.4 % (0.00-10.9); Immature Granulocytes % 0.2 %; Immature Granulocytes Absolute 0.01 #; Lymphocytes # 1.1 10*3/uL (1.4-4.0); Lymphocytes % 19.9 % (21.2-54.2); Mean Corpuscular HGB Conc 31.4 GM/DL (32-36); Mean Corpuscular Volume 87.6 FL (87-102); Mean Platelet Volume 9.5 FL (9.6-12.0); Monocytes % 11.9 % (1.7-12.7); Neutrophils % 62.8 % (38.7-73.9); Platelet Count 276 T/CUMM (130-400); Red Blood Count 3.31 MC/CUMM (3.8-5.5); Red Cell Distribution Width 14.4 % (9.3-17.3); White Blood Count 5.3 T/CUMM (4-12)
[2021-07-04 06:10] LABS: Hemoglobin 9.1 GM/DL (14.0-18.0)
[2021-07-04 06:16] LABS: Calcium 8.1 MG/DL (8.5-10.1); Osmolality,Calculated 305.1 MOS/KG (273-304); Potassium 4.2 MMOL/L (3.5-5.1)
[2021-07-04] MEDS: INSULIN LISPRO 100 UNIT/ML SUBCUT SCH ×4 (07:42→21:46)
[2021-07-04] MEDS: FUROSEMIDE 40 MG/4 ML VIAL IV SCH (08:30)
[2021-07-04] MEDS: ISOSORBIDE MONONITRATE 30 MG TABLET PO SCH (08:30)
[2021-07-04] MEDS: PANTOPRAZOLE 40 MG TABLET PO SCH (08:30)
[2021-07-04] MEDS: SODIUM BICARBONATE 650 MG TABLET PO SCH ×3 (08:30→20:29)
[2021-07-04] MEDS: carvediloL 12.5 MG TABLET PO SCH (08:31)
[2021-07-04] MEDS: hydrALAZINE 25 MG TABLET PO SCH ×3 (08:31→20:30)
[2021-07-04] MEDS: SPIRONOLACTONE 50 MG TABLET PO SCH (08:31)
[2021-07-04] MEDS: HEPARIN 5,000 UNIT/1 ML VIAL SUBCUT SCH ×3 (10:16→21:47)
[2021-07-04] MEDS: TAMSULOSIN 0.4 MG CAPSULE PO SCH (20:29)
[2021-07-04] MEDS: carvediloL 25 MG TABLET PO SCH (20:30)
[2021-07-05 04:39] LABS: Basophils # 0.1 10*3/uL (0.0-0.2); Basophils % 1.4 % (0.0-0.8); Eosinophils # 0.3 10*3/uL (0.0-0.87); Eosinophils % 5.4 % (0.00-10.9); Hematocrit 29.1 VOL% (42.0-52.0); Hemoglobin 8.8 GM/DL (14.0-18.0); Immature Granulocytes % 0.4 %; Immature Granulocytes Absolute 0.02 #; Mean Corpuscular HGB Conc 30.2 GM/DL (32-36); Mean Corpuscular Volume 87.9 FL (87-102); Mean Platelet Volume 9.1 FL (9.6-12.0); Monocytes % 12.2 % (1.7-12.7); Neutrophils % 60.6 % (38.7-73.9); Platelet Count 255 T/CUMM (130-400); Red Blood Count 3.31 MC/CUMM (3.8-5.5); Red Cell Distribution Width 14.4 % (9.3-17.3); White Blood Count 5.2 T/CUMM (4-12)
[2021-07-05 05:07] LABS: Calcium 8.7 MG/DL (8.5-10.1); Osmolality,Calculated 302.1 MOS/KG (273-304); Potassium 4.3 MMOL/L (3.5-5.1)
[2021-07-05] MEDS: INSULIN LISPRO 100 UNIT/ML SUBCUT SCH ×4 (07:50→21:42)
[2021-07-05] MEDS: FUROSEMIDE 80 MG TABLET PO SCH (08:55)
[2021-07-05] MEDS: SPIRONOLACTONE 50 MG TABLET PO SCH (08:55)
[2021-07-05] MEDS: PANTOPRAZOLE 40 MG TABLET PO SCH (08:55)
[2021-07-05] MEDS: SODIUM BICARBONATE 650 MG TABLET PO SCH ×3 (08:55→21:40)
[2021-07-05] MEDS: carvediloL 25 MG TABLET PO SCH ×2 (08:56→21:41)
[2021-07-05] MEDS: ISOSORBIDE MONONITRATE 30 MG TABLET PO SCH (08:56)
[2021-07-05] MEDS: hydrALAZINE 25 MG TABLET PO SCH (08:56)
[2021-07-05] MEDS: HEPARIN 5,000 UNIT/1 ML VIAL SUBCUT SCH ×3 (08:57→21:39)
[2021-07-05] MEDS ORDERED: SKIN HEALING OINT (AQUAPHOR) 50 GM TUBE TOP PRN (15:29)
[2021-07-05] MEDS: TAMSULOSIN 0.4 MG CAPSULE PO SCH (21:40)
[2021-07-06 05:15] LABS: Basophils # 0.1 10*3/uL (0.0-0.2); Eosinophils # 0.3 10*3/uL (0.0-0.87); Eosinophils % 4.8 % (0.00-10.9); Hematocrit 29.3 VOL% (42.0-52.0); Hemoglobin 9.1 GM/DL (14.0-18.0); Immature Granulocytes % 0.5 %; Immature Granulocytes Absolute 0.03 #; Lymphocytes # 1.2 10*3/uL (1.4-4.0); Lymphocytes % 20.2 % (21.2-54.2); Mean Corpuscular HGB Conc 31.1 GM/DL (32-36); Mean Corpuscular Volume 88.3 FL (87-102); Mean Platelet Volume 9.9 FL (9.6-12.0); Monocytes % 12.7 % (1.7-12.7); Neutrophils % 60.8 % (38.7-73.9); Platelet Count 270 T/CUMM (130-400); Red Blood Count 3.32 MC/CUMM (3.8-5.5); Red Cell Distribution Width 14.5 % (9.3-17.3); White Blood Count 5.8 T/CUMM (4-12)
[2021-07-06 05:30] LABS: Calcium 8.3 MG/DL (8.5-10.1); Osmolality,Calculated 303.1 MOS/KG (273-304); Potassium 4.5 MMOL/L (3.5-5.1)
[2021-07-06] MEDS: PANTOPRAZOLE 40 MG TABLET PO SCH (10:13)
[2021-07-06] MEDS: carvediloL 25 MG TABLET PO SCH (10:13)
[2021-07-06] MEDS: SODIUM BICARBONATE 650 MG TABLET PO SCH ×2 (10:14→16:35)
[2021-07-06] MEDS: FUROSEMIDE 80 MG TABLET PO SCH (10:14)
[2021-07-06] MEDS: HEPARIN 5,000 UNIT/1 ML VIAL SUBCUT SCH (10:15)
[2021-07-06] MEDS: INSULIN LISPRO 100 UNIT/ML SUBCUT SCH ×3 (10:15→16:36)
[2021-07-06] MEDS: ISOSORBIDE MONONITRATE 30 MG TABLET PO SCH (10:23)
[2021-07-06 17:27] VITALS: BP 139/98
== END 2021-07-06 20:02 | disposition home or self-care (01) | DRG 194 ==
LOC: N.ED 14:53 → SUATTDRO 21:20 → N.EDINP 21:20 → N.TELES 07-03 00:16
PROVIDERS: ADMIT Emergency Medicine; ATTEND Internal Medicine

== ENCOUNTER 2021-10-10 14:25 | Inpatient (IN) ==
[2021-10-10] MEDS ORDERED: PIPERACILLIN/TAZOBACTAM 3,375 MG in SODIUM CHLORIDE 0.9% 100 ML IV STA (14:57)
[2021-10-10] MEDS ORDERED: VANCOMYCIN INJ 1,750 MG in SODIUM CHLORIDE 0.9% 250 ML IV STA (14:57)
[2021-10-10] MEDS ORDERED: VANCOMYCIN INJ 1,750 MG in SODIUM CHLORIDE 0.9% 500 ML IV STA (15:01)
[2021-10-10 15:15] LABS: Basophils # 0.1 10*3/uL (0.0-0.2); Basophils % 0.6 % (0.0-0.8); Eosinophils # 0.1 10*3/uL (0.0-0.87); Eosinophils % 0.5 % (0.00-10.9); Hematocrit 30.3 VOL% (42.0-52.0); Hemoglobin 9.6 GM/DL (14.0-18.0); Immature Granulocytes % 1.2 %; Immature Granulocytes Absolute 0.21 #; Lymphocytes # 0.3 10*3/uL (1.4-4.0); Mean Corpuscular HGB Conc 31.7 GM/DL (32-36); Mean Corpuscular Volume 79.9 FL (87-102); Mean Platelet Volume 10.4 FL (9.6-12.0); Monocytes # 0.1 10*3/uL (0.11-0.8); Monocytes % 0.5 % (1.7-12.7); NRBC # 0.02 10*3/uL; Neutrophils % 95.2 % (38.7-73.9); Platelet Count 206 T/CUMM (130-400); Red Blood Count 3.79 MC/CUMM (3.8-5.5); Red Cell Distribution Width 16.5 % (9.3-17.3); White Blood Count 17.2 T/CUMM (4-12)
[2021-10-10 15:35] LABS: Alanine Aminotransferase 20 U/L (16-61); Albumin 1.9 G/DL (3.4-5.0); Alkaline Phosphatase 339 U/L (45-117); Amylase 24 U/L (25-115); Aspartate Amino Transferase 22 U/L (0-37); Blood Urea Nitrogen 85 MG/DL (7-18); Calcium 8.6 MG/DL (8.5-10.1); Carbon Dioxide 10 MMOL/L (21-32); Chloride 109 MMOL/L (98-107); Glucose 126 MG/DL (74-106); Osmolality,Calculated 295.2 MOS/KG (273-304); Sodium 134 MMOL/L (136-145); Total Protein 7.4 G/DL (6.4-8.2)
[2021-10-10 16:24] LABS: Band Neutrophils 1 % (0-10); Lymphocytes 6 % (20-55); Total Cells Counted 100
[2021-10-10 16:25] LABS: Ovalocytes Few; Polychromasia Slight
[2021-10-10 16:26] LABS: Burr Cells Slight; Platelet Estimate Normal
[2021-10-10] MEDS ORDERED: SODIUM CHLORIDE 0.9% 250 ML IV STA ×2 (17:09→17:43)
[2021-10-10] MEDS ORDERED: ALUMINUM/MAGNES/SIMETH MAX STR 30 ML UDCUP PO PRN (17:13)
[2021-10-10] MEDS ORDERED: LACTULOSE 20 GM/30 ML UDCUP PO PRN (17:13)
[2021-10-10] MEDS ORDERED: ALBUTEROL/IPRATROPIUM 3 ML NEB RESP TX PRN (17:13)
[2021-10-10] MEDS ORDERED: GLUCAGON 1 MG VIAL IM PRN (17:13)
[2021-10-10] MEDS ORDERED: NALOXONE 0.4 MG/ML VIAL IV PRN (17:23)
[2021-10-10] MEDS ORDERED: DEXTROSE 10% 250 ML BAG IV PRN (17:29)
[2021-10-10 17:45] LABS: Arterial Base Excess iSTAT -17 MMOL/L (-2.5-2.5); Arterial Bicarbonate iSTAT 8.5 MMOL/L (20-26); Arterial O2 Saturation iSTAT 90 % (95-100); Arterial PCO2 iSTAT 20 MM HG (35-48); Arterial PO2 iSTAT 67 MM HG (80-95); Arterial Total CO2 iSTAT 9 MMO/L (23-27); Arterial pH iSTAT 7.245 (7.35-7.45)
[2021-10-10 17:45] LABS: Arterial Base Excess iSTAT -17 MMOL/L (-2.5-2.5); Arterial Bicarbonate iSTAT 8.6 MMOL/L (20-26); Arterial O2 Saturation iSTAT 83 % (95-100); Arterial PCO2 iSTAT 19 MM HG (35-48); Arterial PO2 iSTAT 53 MM HG (80-95); Arterial Total CO2 iSTAT 9 MMO/L (23-27); Arterial pH iSTAT 7.258 (7.35-7.45)
[2021-10-10] MEDS ORDERED: SODIUM BICARBONATE 50 MEQ/50 ML VIAL IV STA ×2 (17:53→18:02)
[2021-10-10] MEDS ORDERED: SODIUM CHLORIDE 0.9% 500 ML IV STA (18:05)
[2021-10-10 18:12] LABS: % Iron Saturation 15.3 % (18-50)
[2021-10-10] MEDS ORDERED: VANCOMYCIN INJ 1,000 MG in SODIUM CHLORIDE 0.9% 250 ML IV PRN (18:13)
[2021-10-10 18:33] LABS: Folate 11.37 NG/ML (5.38-24.0)
[2021-10-10] MEDS ORDERED: SODIUM BICARB INJ 100 MEQ in SODIUM CHLORIDE 0.45% 1,000 ML IV SCH (19:30)
[2021-10-10] MEDS: INSULIN REGULAR 100 UNIT/ML SUBCUT SCH (20:16)
[2021-10-10] MEDS: DOCUSATE SODIUM 100 MG CAPSULE PO SCH (20:17)
[2021-10-10 20:21] LABS: Calcium 8.1 MG/DL (8.5-10.1); Potassium 3.5 MMOL/L (3.5-5.1)
[2021-10-10] MEDS: SODIUM BICARB INJ 150 MEQ in STERILE WATER INJ 850 ML IV SCH (20:23)
[2021-10-10] MEDS ORDERED: VANCOMYCIN INJ 1,250 MG in SODIUM CHLORIDE 0.9% 250 ML IV SCH (23:00)
[2021-10-11] MEDS: PIPERACILLIN/TAZOBACTAM 3,375 MG in SODIUM CHLORIDE 0.9% 100 ML IV SCH ×2 (03:14→16:06)
[2021-10-11 06:23] LABS: Phosphorous 5.4 MG/DL (2.5-4.9); Uric Acid 12.7 MG/DL (3.5-7.2)
[2021-10-11 06:25] LABS: Albumin 1.5 G/DL (3.4-5.0); Bilirubin,Total 1.2 MG/DL (0.20-1.00); Calcium 8.3 MG/DL (8.5-10.1); Ferritin 400.5 ng/mL (26-388); Potassium 3.5 MMOL/L (3.5-5.1); Total Protein 6.2 G/DL (6.4-8.2)
[2021-10-11 06:34] LABS: Cholesterol 103 MG/DL (50-200); HDL Cholesterol < 10 MG/DL (40-60); Triglycerides 252 MG/DL (2-150); VLDL Cholesterol 50.4 MG/DL
[2021-10-11 06:44] LABS: Parathyroid Hormone Intact 217.2 PG/ML (18.4-80.1)
[2021-10-11 07:31] LABS: Basophils # 0.1 10*3/uL (0.0-0.2); Basophils % 0.2 % (0.0-0.8); Hematocrit 24.2 VOL% (42.0-52.0); Hemoglobin 7.7 GM/DL (14.0-18.0); Immature Granulocytes % 3.1 %; Immature Granulocytes Absolute 0.95 #; Lymphocytes # 1.2 10*3/uL (1.4-4.0); Lymphocytes % 3.8 % (21.2-54.2); Mean Corpuscular HGB Conc 31.8 GM/DL (32-36); Mean Corpuscular Volume 80.4 FL (87-102); Mean Platelet Volume 10.9 FL (9.6-12.0); Monocytes # 1.6 10*3/uL (0.11-0.8); Monocytes % 5.1 % (1.7-12.7); Neutrophils % 87.8 % (38.7-73.9); Platelet Count 181 T/CUMM (130-400); Red Blood Count 3.01 MC/CUMM (3.8-5.5); Red Cell Distribution Width 16.5 % (9.3-17.3); White Blood Count 30.7 T/CUMM (4-12)
[2021-10-11 07:35] LABS: Band Neutrophils 1 % (0-10); Lymphocytes 1 % (20-55); Platelet Estimate Adequate; Total Cells Counted 100
[2021-10-11 07:36] LABS: Burr Cells Slight; Hypochromia Slight; Microcytosis Slight
[2021-10-11] MEDS: INSULIN REGULAR 100 UNIT/ML SUBCUT SCH ×4 (08:46→20:03)
[2021-10-11] MEDS: SEVELAMER CARBONATE 800 MG TABLET PO SCH ×3 (08:46→16:06)
[2021-10-11] MEDS: SODIUM BICARB INJ 150 MEQ in STERILE WATER INJ 850 ML IV SCH (08:47)
[2021-10-11] MEDS: DOCUSATE SODIUM 100 MG CAPSULE PO SCH ×2 (08:47→20:03)
[2021-10-11] MEDS: FERROUS SULFATE 325 MG TABLET PO SCH (08:47)
[2021-10-11] MEDS: PANTOPRAZOLE 40 MG TABLET PO SCH (08:47)
[2021-10-11] MEDS ORDERED: MAGNESIUM SULF RIDER 2 GM/50 ML PREMIX IV ONE (09:45)
[2021-10-11] MEDS: MORPHINE 2 MG/1 ML SYRINGE IV PRN (10:36)
[2021-10-11 11:11] LABS: Hepatitis B Core IgM Quant 0.21 Index; Hepatitis B Surface Ag Quant < 0.10 Index; Hepatitis B Surface Ag Result Non-Reactive (NonReactive); Hepatitis C Virus Ab Quant 0.11 Index; Hepatitis C Virus Ab Result Non-Reactive (NonReactive)
[2021-10-11] MEDS: SODIUM HYPOCHLORITE 0.25% IRRIG 473 ML BOTTLE TOP SCH (14:57)
[2021-10-11] MEDS: carvediloL 6.25 MG TABLET PO SCH (16:06)
[2021-10-11] MEDS ORDERED: HEPARIN 10,000 UNIT/10 ML VIAL IV PRN (18:09)
[2021-10-11] MEDS ORDERED: EPOETIN ALFA-EPBX 10,000 UNIT/ML VIAL IV SCH (19:30)
[2021-10-12] MEDS: SODIUM BICARB INJ 150 MEQ in STERILE WATER INJ 850 ML IV SCH (01:39)
[2021-10-12] MEDS: PIPERACILLIN/TAZOBACTAM 3,375 MG in SODIUM CHLORIDE 0.9% 100 ML IV SCH ×2 (02:39→16:31)
[2021-10-12 06:00] LABS: Basophils % 0.1 % (0.0-0.8); Eosinophils % 0.1 % (0.00-10.9); Hematocrit 26.4 VOL% (42.0-52.0); Hemoglobin 8.8 GM/DL (14.0-18.0); Immature Granulocytes % 4.8 %; Immature Granulocytes Absolute 1.28 #; Lymphocytes # 1.2 10*3/uL (1.4-4.0); Lymphocytes % 4.6 % (21.2-54.2); Mean Corpuscular HGB Conc 33.3 GM/DL (32-36); Mean Platelet Volume 10.7 FL (9.6-12.0); Monocytes # 2.3 10*3/uL (0.11-0.8); Monocytes % 8.8 % (1.7-12.7); Neutrophils % 81.6 % (38.7-73.9); Platelet Count 172 T/CUMM (130-400); Red Blood Count 3.43 MC/CUMM (3.8-5.5); Red Cell Distribution Width 16.4 % (9.3-17.3); White Blood Count 26.7 T/CUMM (4-12)
[2021-10-12 06:19] LABS: % Iron Saturation 51.7 % (18-50)
[2021-10-12 06:21] LABS: Albumin 1.5 G/DL (3.4-5.0); Bilirubin,Total 1.1 MG/DL (0.20-1.00); Calcium 8.1 MG/DL (8.5-10.1); Potassium 3.2 MMOL/L (3.5-5.1); Total Protein 6.2 G/DL (6.4-8.2)
[2021-10-12 06:23] LABS: Band Neutrophils 1 % (0-10); Burr Cells Slight; Hypochromia Slight; Lymphocytes 4 % (20-55); Microcytosis Slight; Platelet Estimate Adequate; Total Cells Counted 100
[2021-10-12] MEDS: INSULIN REGULAR 100 UNIT/ML SUBCUT SCH ×4 (08:42→20:23)
[2021-10-12] MEDS: carvediloL 6.25 MG TABLET PO SCH ×3 (08:43→19:04)
[2021-10-12] MEDS: DOCUSATE SODIUM 100 MG CAPSULE PO SCH ×2 (08:44→20:23)
[2021-10-12] MEDS: SEVELAMER CARBONATE 800 MG TABLET PO SCH ×3 (08:44→19:02)
[2021-10-12] MEDS: SODIUM HYPOCHLORITE 0.25% IRRIG 473 ML BOTTLE TOP SCH (08:45)
[2021-10-12] MEDS ORDERED: SEVOFLURANE 1 UNIT/15 MINUTE INH ONE (13:17)
[2021-10-12] MEDS ORDERED: propofoL 200 MG/20 ML VIAL IV ONE (13:17)
[2021-10-12] MEDS ORDERED: LIDOCAINE 2% 5 ML VIAL ONE (13:17)
[2021-10-12] MEDS ORDERED: MIDAZOLAM 2 MG/2 ML VIAL ONE (13:17)
[2021-10-12] MEDS ORDERED: KETAMINE 500 MG/10 ML VIAL ONE (13:18)
[2021-10-12] MEDS ORDERED: EPINEPHrine 1 MG/ML VIAL ONE (13:56)
[2021-10-12] MEDS ORDERED: PHENYLEPHRINE 1 MG/10 ML SYRINGE IV ONE (13:59)
[2021-10-12] MEDS ORDERED: PHENYLEPHRINE 10 MG/1 ML VIAL IV ONE (14:00)
[2021-10-12] MEDS ORDERED: SODIUM CHLORIDE 0.9% 500 ML IV ONE (14:18)
[2021-10-12] MEDS: PANTOPRAZOLE 40 MG TABLET PO SCH (15:14)
[2021-10-12] MEDS: FERROUS SULFATE 325 MG TABLET PO SCH (15:14)
[2021-10-12] MEDS ORDERED: NOREPINEPHRINE 8 MG in SODIUM CHLORIDE 0.9% 242 ML IV PRN (15:42)
[2021-10-12] MEDS ORDERED: NOREPINEPHRINE 4 MG/4 ML VIAL IV ONE ×2 (15:58)
[2021-10-12] MEDS: MORPHINE 2 MG/1 ML SYRINGE IV PRN (16:46)
[2021-10-13] MEDS: PIPERACILLIN/TAZOBACTAM 3,375 MG in SODIUM CHLORIDE 0.9% 100 ML IV SCH ×3 (02:03→17:43)
[2021-10-13 03:48] LABS: Basophils % 0.2 % (0.0-0.8); Hematocrit 25.9 VOL% (42.0-52.0); Hemoglobin 8.6 GM/DL (14.0-18.0); Immature Granulocytes % 4.5 %; Immature Granulocytes Absolute 1.02 #; Lymphocytes # 1.4 10*3/uL (1.4-4.0); Lymphocytes % 6.2 % (21.2-54.2); Mean Corpuscular HGB Conc 33.2 GM/DL (32-36); Mean Corpuscular Volume 77.5 FL (87-102); Mean Platelet Volume 10.8 FL (9.6-12.0); NRBC # 0.03 10*3/uL; Neutrophils % 80.1 % (38.7-73.9); Platelet Count 174 T/CUMM (130-400); Red Blood Count 3.34 MC/CUMM (3.8-5.5); Red Cell Distribution Width 16.3 % (9.3-17.3); White Blood Count 22.6 T/CUMM (4-12)
[2021-10-13 04:07] LABS: Albumin 1.3 G/DL (3.4-5.0); Bilirubin,Total 1.5 MG/DL (0.20-1.00); Calcium 7.9 MG/DL (8.5-10.1); Osmolality,Calculated 292.8 MOS/KG (273-304); Potassium 3.1 MMOL/L (3.5-5.1); Total Protein 6.2 G/DL (6.4-8.2)
[2021-10-13 04:08] LABS: Lymphocytes 3 % (20-55); Platelet Estimate Adequate; Total Cells Counted 100
[2021-10-13 04:09] LABS: Hypochromia Slight; Microcytosis Slight
[2021-10-13] MEDS: INSULIN REGULAR 100 UNIT/ML SUBCUT SCH ×4 (08:52→20:06)
[2021-10-13] MEDS ORDERED: POTASSIUM CHLORIDE 10 MEQ TABLET PO ONE (08:52)
[2021-10-13] MEDS: SEVELAMER CARBONATE 800 MG TABLET PO SCH ×3 (08:53→17:19)
[2021-10-13] MEDS: carvediloL 6.25 MG TABLET PO SCH ×2 (08:53→17:19)
[2021-10-13] MEDS: DOCUSATE SODIUM 100 MG CAPSULE PO SCH ×2 (08:53→20:20)
[2021-10-13] MEDS: FERROUS SULFATE 325 MG TABLET PO SCH (08:53)
[2021-10-13] MEDS: PANTOPRAZOLE 40 MG TABLET PO SCH (08:54)
[2021-10-13] MEDS: SODIUM HYPOCHLORITE 0.25% IRRIG 473 ML BOTTLE TOP SCH (12:40)
[2021-10-13] MEDS ORDERED: DEXTROSE 50% 25 GM/50 ML VIAL IV PRN (12:44)
[2021-10-13] MEDS ORDERED: MAGNESIUM SULF RIDER 2 GM/50 ML PREMIX IV PRN (16:01)
[2021-10-13] MEDS ORDERED: VANCOMYCIN INJ 1,000 MG in SODIUM CHLORIDE 0.9% 250 ML IV ONE (18:00)
[2021-10-14 04:17] LABS: Basophils % 0.1 % (0.0-0.8); Eosinophils % 0.1 % (0.00-10.9); Hematocrit 24.4 VOL% (42.0-52.0); Hemoglobin 7.9 GM/DL (14.0-18.0); Immature Granulocytes % 3.7 %; Immature Granulocytes Absolute 0.85 #; Lymphocytes # 1.8 10*3/uL (1.4-4.0); Lymphocytes % 7.6 % (21.2-54.2); Mean Corpuscular HGB Conc 32.4 GM/DL (32-36); Mean Platelet Volume 11.3 FL (9.6-12.0); Monocytes % 8.5 % (1.7-12.7); NRBC # 0.11 10*3/uL; Platelet Count 176 T/CUMM (130-400); Red Blood Count 3.09 MC/CUMM (3.8-5.5); Red Cell Distribution Width 16.3 % (9.3-17.3); White Blood Count 23.3 T/CUMM (4-12)
[2021-10-14 04:47] LABS: Acanthocytes Few; Helmet Cells Few; Lymphocytes 9 % (20-55); Platelet Estimate Adequate; Poikilocytosis Slight; Total Cells Counted 100
[2021-10-14 04:50] LABS: Hypochromia 1+
[2021-10-14 04:58] LABS: Albumin 1.3 G/DL (3.4-5.0); Bilirubin,Total 3.1 MG/DL (0.20-1.00); Calcium 7.9 MG/DL (8.5-10.1); Potassium 3.1 MMOL/L (3.5-5.1); Total Protein 5.8 G/DL (6.4-8.2)
[2021-10-14 05:07] LABS: Total Protein 5.3 G/DL (6.4-8.2)
[2021-10-14] MEDS: POTASSIUM CHLORIDE RIDER 10 MEQ/100 ML PREMIX IV PRN ×2 (05:18→06:18)
[2021-10-14] MEDS: PIPERACILLIN/TAZOBACTAM 3,375 MG in SODIUM CHLORIDE 0.9% 100 ML IV SCH ×2 (05:18→17:28)
[2021-10-14 07:19] LABS: Immunoglobulin A (Chem) 225 MG/DL (70-400); Immunoglobulin G (Chem) 1710 MG/DL (700-1600); Immunoglobulin M (Chem) 98 MG/DL (40-230); Total Protein (Chem) 5.3 G/DL (6.4-8.3)
[2021-10-14] MEDS: INSULIN REGULAR 100 UNIT/ML SUBCUT SCH ×4 (07:51→20:26)
[2021-10-14] MEDS: SEVELAMER CARBONATE 800 MG TABLET PO SCH ×3 (07:51→17:28)
[2021-10-14] MEDS: carvediloL 6.25 MG TABLET PO SCH ×2 (08:51→17:28)
[2021-10-14] MEDS: FERROUS SULFATE 325 MG TABLET PO SCH (08:51)
[2021-10-14] MEDS: DOCUSATE SODIUM 100 MG CAPSULE PO SCH ×2 (08:51→20:02)
[2021-10-14] MEDS: PANTOPRAZOLE 40 MG TABLET PO SCH (08:51)
[2021-10-14 09:23] LABS: Albumin (SPE) 1.7 G/DL (3.2-5.3); Albumin (SPE) Rel % 32.9 %; Alpha 1 (SPE) 0.3 G/DL (0.1-0.4); Alpha 1 (SPE) Rel % 5.8 %; Alpha 2 (SPE) 0.6 G/DL (0.4-1.0); Alpha 2 (SPE) Rel % 11.9 %; Beta (SPE) 0.6 G/DL (0.5-1.1); Beta (SPE) Rel % 10.4 %; Gamma (SPE) 2.1 G/DL (0.7-1.7)
[2021-10-14] MEDS: SODIUM HYPOCHLORITE 0.25% IRRIG 473 ML BOTTLE TOP SCH (11:03)
[2021-10-14] MEDS: ONDANSETRON 4 MG/2 ML VIAL IV PRN (11:03)
[2021-10-14] MEDS ORDERED: MAGNESIUM SULF RIDER 2 GM/50 ML PREMIX IV ONE (11:56)
[2021-10-14] MEDS ORDERED: DIAZEPAM 5 MG TABLET PO ONE (13:45)
[2021-10-14] MEDS ORDERED: diphenhydrAMINE CAP 50 MG CAPSULE PO ONE (13:45)
[2021-10-14] MEDS ORDERED: MIDAZOLAM 2 MG/2 ML VIAL ONE (15:06)
[2021-10-14] MEDS ORDERED: HYDROmorphone 1 MG/1 ML SYRINGE ONE (15:07)
[2021-10-14] MEDS ORDERED: HEPARIN 5,000 UNIT/1 ML VIAL ONE (15:32)
[2021-10-14] MEDS: ATORVASTATIN 80 MG TABLET PO SCH (20:02)
[2021-10-14] MEDS ORDERED: ROSUVASTATIN 20 MG TABLET PO SCH (21:00)
[2021-10-15 04:39] LABS: Basophils % 0.2 % (0.0-0.8); Eosinophils # 0.1 10*3/uL (0.0-0.87); Eosinophils % 0.4 % (0.00-10.9); Hematocrit 23.3 VOL% (42.0-52.0); Hemoglobin 7.3 GM/DL (14.0-18.0); Immature Granulocytes % 5.9 %; Immature Granulocytes Absolute 1.53 #; Lymphocytes # 1.5 10*3/uL (1.4-4.0); Lymphocytes % 5.9 % (21.2-54.2); Mean Corpuscular HGB Conc 31.3 GM/DL (32-36); Mean Corpuscular Volume 82.9 FL (87-102); Mean Platelet Volume 9.7 FL (9.6-12.0); Monocytes % 7.6 % (1.7-12.7); NRBC # 0.04 10*3/uL; Platelet Count 150 T/CUMM (130-400); Red Blood Count 2.81 MC/CUMM (3.8-5.5); Red Cell Distribution Width 16.7 % (9.3-17.3); White Blood Count 26.1 T/CUMM (4-12)
[2021-10-15 04:55] LABS: Albumin 1.3 G/DL (3.4-5.0); Bilirubin,Total 2.7 MG/DL (0.20-1.00); Potassium 3.7 MMOL/L (3.5-5.1)
[2021-10-15 05:06] LABS: Anisocytosis 2+; Band Neutrophils 11 % (0-10); Burr Cells Few; Lymphocytes 7 % (20-55); Macrocytosis Slight; Platelet Estimate Normal; Poikilocytosis Slight; Total Cells Counted 100
[2021-10-15 05:07] LABS: Ovalocytes Few
[2021-10-15] MEDS: PIPERACILLIN/TAZOBACTAM 3,375 MG in SODIUM CHLORIDE 0.9% 100 ML IV SCH ×2 (05:40→20:53)
[2021-10-15] MEDS ORDERED: SODIUM CHLORIDE 0.9% 1,000 ML IV PRN (07:37)
[2021-10-15] MEDS: INSULIN REGULAR 100 UNIT/ML SUBCUT SCH ×6 (07:40→20:49)
[2021-10-15] MEDS ORDERED: POTASSIUM CHLORIDE RIDER 10 MEQ/100 ML PREMIX IV PRN (09:47)
[2021-10-15] MEDS ORDERED: MAGNESIUM SULF RIDER 2 GM/50 ML PREMIX IV PRN (09:47)
[2021-10-15] MEDS: carvediloL 6.25 MG TABLET PO SCH ×2 (09:49→18:33)
[2021-10-15] MEDS: DOCUSATE SODIUM 100 MG CAPSULE PO SCH ×2 (09:49→20:53)
[2021-10-15] MEDS: SEVELAMER CARBONATE 800 MG TABLET PO SCH ×3 (09:49→18:33)
[2021-10-15] MEDS: FERROUS SULFATE 325 MG TABLET PO SCH (09:50)
[2021-10-15] MEDS: SODIUM HYPOCHLORITE 0.25% IRRIG 473 ML BOTTLE TOP SCH (10:00)
[2021-10-15] MEDS: PANTOPRAZOLE 40 MG TABLET PO SCH (10:07)
[2021-10-15] MEDS: ASPIRIN EC 81 MG TABLET PO SCH (12:38)
[2021-10-15] MEDS ORDERED: diphenhydrAMINE CAP 50 MG CAPSULE PO ONE (13:00)
[2021-10-15] MEDS ORDERED: DIAZEPAM 5 MG TABLET PO ONE (13:00)
[2021-10-15] MEDS ORDERED: HYDROmorphone 1 MG/1 ML SYRINGE ONE (13:43)
[2021-10-15] MEDS ORDERED: MIDAZOLAM 2 MG/2 ML VIAL ONE (13:44)
[2021-10-15] MEDS ORDERED: HEPARIN 5,000 UNIT/1 ML VIAL ONE (13:51)
[2021-10-15 13:56] LABS: Kappa Free Light Chain 22.1 mg/dL; Lambda Free Light Chain 16.1 mg/dL
[2021-10-15] MEDS ORDERED: TIROFIBAN 5,000 MCG/100 ML PREMIX IV ONE (15:00)
[2021-10-15] MEDS ORDERED: CLOPIDOGREL 300 MG TABLET ONE (15:37)
[2021-10-15] MEDS ORDERED: VANCOMYCIN INJ 1,000 MG in SODIUM CHLORIDE 0.9% 250 ML IV ONE ×2 (17:00→18:30)
[2021-10-15] MEDS: ATORVASTATIN 80 MG TABLET PO SCH (20:53)
[2021-10-16 03:52] LABS: Basophils % 0.2 % (0.0-0.8); Eosinophils # 0.2 10*3/uL (0.0-0.87); Eosinophils % 0.6 % (0.00-10.9); Hematocrit 25.4 VOL% (42.0-52.0); Hemoglobin 8.2 GM/DL (14.0-18.0); Immature Granulocytes % 4.9 %; Immature Granulocytes Absolute 1.23 #; Lymphocytes # 1.5 10*3/uL (1.4-4.0); Lymphocytes % 5.9 % (21.2-54.2); Mean Corpuscular HGB Conc 32.3 GM/DL (32-36); Mean Corpuscular Volume 81.9 FL (87-102); Mean Platelet Volume 9.6 FL (9.6-12.0); Monocytes # 1.4 10*3/uL (0.11-0.8); Monocytes % 5.7 % (1.7-12.7); NRBC # 0.03 10*3/uL; Neutrophils % 82.7 % (38.7-73.9); Platelet Count 151 T/CUMM (130-400); Red Cell Distribution Width 16.9 % (9.3-17.3); White Blood Count 25.4 T/CUMM (4-12)
[2021-10-16 04:11] LABS: Band Neutrophils 2 % (0-10); Hypochromia Slight; Lymphocytes 4 % (20-55); Microcytosis Slight; Platelet Estimate Adequate; Total Cells Counted 100
[2021-10-16 04:13] LABS: Albumin 1.2 G/DL (3.4-5.0); Bilirubin,Total 2.2 MG/DL (0.20-1.00); Calcium 7.9 MG/DL (8.5-10.1); Osmolality,Calculated 283.8 MOS/KG (273-304); Potassium 3.7 MMOL/L (3.5-5.1); Total Protein 5.9 G/DL (6.4-8.2)
[2021-10-16] MEDS: INSULIN REGULAR 100 UNIT/ML SUBCUT SCH ×4 (07:10→20:59)
[2021-10-16] MEDS: SEVELAMER CARBONATE 800 MG TABLET PO SCH ×3 (08:52→17:25)
[2021-10-16] MEDS: carvediloL 6.25 MG TABLET PO SCH ×2 (08:52→17:25)
[2021-10-16] MEDS: ASPIRIN EC 81 MG TABLET PO SCH (09:51)
[2021-10-16] MEDS: DOCUSATE SODIUM 100 MG CAPSULE PO SCH ×2 (09:51→21:00)
[2021-10-16] MEDS: FERROUS SULFATE 325 MG TABLET PO SCH (09:51)
[2021-10-16] MEDS: PANTOPRAZOLE 40 MG TABLET PO SCH (09:52)
[2021-10-16] MEDS: PIPERACILLIN/TAZOBACTAM 3,375 MG in SODIUM CHLORIDE 0.9% 100 ML IV SCH (09:54)
[2021-10-16] MEDS: SODIUM HYPOCHLORITE 0.25% IRRIG 473 ML BOTTLE TOP SCH (09:55)
[2021-10-16] MEDS: CIPROFLOXACIN INJ 200 MG/100 ML PREMIX IV SCH (17:51)
[2021-10-16] MEDS: ATORVASTATIN 80 MG TABLET PO SCH (21:00)
[2021-10-17 04:28] LABS: Basophils % 0.2 % (0.0-0.8); Eosinophils # 0.1 10*3/uL (0.0-0.87); Eosinophils % 0.6 % (0.00-10.9); Hemoglobin 7.5 GM/DL (14.0-18.0); Immature Granulocytes % 2.7 %; Immature Granulocytes Absolute 0.63 #; Lymphocytes # 1.9 10*3/uL (1.4-4.0); Lymphocytes % 7.9 % (21.2-54.2); Mean Corpuscular HGB Conc 31.3 GM/DL (32-36); Mean Corpuscular Volume 83.3 FL (87-102); Mean Platelet Volume 10.3 FL (9.6-12.0); Monocytes # 1.4 10*3/uL (0.11-0.8); Monocytes % 6.1 % (1.7-12.7); Neutrophils % 82.5 % (38.7-73.9); Platelet Count 181 T/CUMM (130-400); Red Blood Count 2.88 MC/CUMM (3.8-5.5); Red Cell Distribution Width 17.2 % (9.3-17.3); White Blood Count 23.6 T/CUMM (4-12)
[2021-10-17 04:41] LABS: Calcium 7.8 MG/DL (8.5-10.1); Osmolality,Calculated 284.4 MOS/KG (273-304); Potassium 3.6 MMOL/L (3.5-5.1)
[2021-10-17 04:47] LABS: Eosinophils 3 % (0-10); Lymphocytes 6 % (20-55); Platelet Estimate Adequate; Total Cells Counted 100
[2021-10-17 04:48] LABS: Hypochromia 1+; Microcytosis Slight
[2021-10-17] MEDS: carvediloL 6.25 MG TABLET PO SCH ×2 (08:37→16:54)
[2021-10-17] MEDS: ASPIRIN EC 81 MG TABLET PO SCH (08:37)
[2021-10-17] MEDS: FERROUS SULFATE 325 MG TABLET PO SCH (08:37)
[2021-10-17] MEDS: PANTOPRAZOLE 40 MG TABLET PO SCH (08:37)
[2021-10-17] MEDS: SODIUM HYPOCHLORITE 0.25% IRRIG 473 ML BOTTLE TOP SCH (08:37)
[2021-10-17] MEDS: DOCUSATE SODIUM 100 MG CAPSULE PO SCH ×2 (08:37→20:33)
[2021-10-17] MEDS: SEVELAMER CARBONATE 800 MG TABLET PO SCH ×3 (08:37→16:54)
[2021-10-17] MEDS: INSULIN REGULAR 100 UNIT/ML SUBCUT SCH ×4 (08:38→20:33)
[2021-10-17] MEDS: CIPROFLOXACIN INJ 200 MG/100 ML PREMIX IV SCH (18:07)
[2021-10-17] MEDS: ATORVASTATIN 80 MG TABLET PO SCH (20:33)
[2021-10-18 06:08] LABS: Basophils % 0.2 % (0.0-0.8); Eosinophils # 0.1 10*3/uL (0.0-0.87); Eosinophils % 0.5 % (0.00-10.9); Hematocrit 24.5 VOL% (42.0-52.0); Hemoglobin 7.7 GM/DL (14.0-18.0); Immature Granulocytes % 1.6 %; Immature Granulocytes Absolute 0.37 #; Lymphocytes % 8.4 % (21.2-54.2); Mean Corpuscular HGB Conc 31.4 GM/DL (32-36); Mean Corpuscular Volume 82.8 FL (87-102); Mean Platelet Volume 10.4 FL (9.6-12.0); Monocytes # 1.5 10*3/uL (0.11-0.8); Monocytes % 6.5 % (1.7-12.7); Neutrophils % 82.8 % (38.7-73.9); Platelet Count 200 T/CUMM (130-400); Red Blood Count 2.96 MC/CUMM (3.8-5.5); Red Cell Distribution Width 17.3 % (9.3-17.3); White Blood Count 23.4 T/CUMM (4-12)
[2021-10-18 06:23] LABS: Calcium 8.3 MG/DL (8.5-10.1); Osmolality,Calculated 284.7 MOS/KG (273-304); Potassium 3.5 MMOL/L (3.5-5.1)
[2021-10-18 06:33] LABS: Atypical Lymphocytes Few; Reactive Lymphocytes 1+
[2021-10-18 06:34] LABS: Hypochromia 1+; Microcytosis 1+; Platelet Estimate Normal
[2021-10-18 06:35] LABS: Schistocytes Few
[2021-10-18] MEDS: DOCUSATE SODIUM 100 MG CAPSULE PO SCH ×2 (08:47→20:26)
[2021-10-18] MEDS: carvediloL 6.25 MG TABLET PO SCH ×2 (08:47→17:17)
[2021-10-18] MEDS: INSULIN REGULAR 100 UNIT/ML SUBCUT SCH ×4 (08:47→20:27)
[2021-10-18] MEDS: SEVELAMER CARBONATE 800 MG TABLET PO SCH ×3 (08:47→17:17)
[2021-10-18] MEDS: PANTOPRAZOLE 40 MG TABLET PO SCH (08:48)
[2021-10-18] MEDS: FERROUS SULFATE 325 MG TABLET PO SCH (08:48)
[2021-10-18] MEDS: SODIUM HYPOCHLORITE 0.25% IRRIG 473 ML BOTTLE TOP SCH (08:48)
[2021-10-18] MEDS: ASPIRIN EC 81 MG TABLET PO SCH (08:48)
[2021-10-18] MEDS: CIPROFLOXACIN INJ 200 MG/100 ML PREMIX IV SCH (17:18)
[2021-10-18] MEDS: ATORVASTATIN 80 MG TABLET PO SCH (20:26)
[2021-10-19 05:05] LABS: Basophils # 0.1 10*3/uL (0.0-0.2); Basophils % 0.3 % (0.0-0.8); Eosinophils # 0.1 10*3/uL (0.0-0.87); Eosinophils % 0.4 % (0.00-10.9); Hematocrit 23.9 VOL% (42.0-52.0); Hemoglobin 7.5 GM/DL (14.0-18.0); Immature Granulocytes % 2.8 %; Immature Granulocytes Absolute 0.67 #; Lymphocytes % 8.4 % (21.2-54.2); Mean Corpuscular HGB Conc 31.4 GM/DL (32-36); Mean Corpuscular Volume 82.4 FL (87-102); Mean Platelet Volume 9.8 FL (9.6-12.0); Monocytes # 1.9 10*3/uL (0.11-0.8); Monocytes % 7.9 % (1.7-12.7); Neutrophils % 80.2 % (38.7-73.9); Platelet Count 197 T/CUMM (130-400); Red Cell Distribution Width 17.2 % (9.3-17.3); White Blood Count 24.3 T/CUMM (4-12)
[2021-10-19 05:22] LABS: Calcium 8.2 MG/DL (8.5-10.1); Osmolality,Calculated 281.7 MOS/KG (273-304); Potassium 3.5 MMOL/L (3.5-5.1)
[2021-10-19 05:32] LABS: Band Neutrophils 1 % (0-10); Eosinophils 1 % (0-10); Lymphocytes 2 % (20-55); Platelet Estimate Adequate; Total Cells Counted 100
[2021-10-19 05:33] LABS: Hypochromia Slight; Microcytosis Slight
[2021-10-19] MEDS ORDERED: ETOMIDATE 40 MG/20 ML VIAL IV ONE (08:13)
[2021-10-19] MEDS ORDERED: LIDOCAINE 2% 5 ML VIAL ONE (08:13)
[2021-10-19] MEDS ORDERED: SUCCINYLCHOLINE 200 MG/10 ML VIAL ONE (08:13)
[2021-10-19] MEDS ORDERED: ROCURONIUM 50 MG/5 ML VIAL IV ONE (08:13)
[2021-10-19] MEDS ORDERED: fentaNYL 100 MCG/2 ML VIAL ONE (08:14)
[2021-10-19] MEDS: SODIUM CHLORIDE 0.9% 250 ML IV SCH ×2 (08:30→09:31)
[2021-10-19] MEDS ORDERED: SODIUM CHLORIDE 0.9% 250 ML IV ONE ×2 (09:12→09:38)
[2021-10-19] MEDS ORDERED: EPINEPHrine 1 MG/ML VIAL ONE (09:12)
[2021-10-19] MEDS ORDERED: DESFLURANE 1 UNIT/15 MINUTE INH ONE (09:13)
[2021-10-19] MEDS ORDERED: ONDANSETRON 4 MG/2 ML VIAL ONE (09:13)
[2021-10-19] MEDS ORDERED: ceFAZolin 1,000 MG VIAL ONE (09:26)
[2021-10-19] MEDS: SODIUM HYPOCHLORITE 0.25% IRRIG 473 ML BOTTLE TOP SCH (11:12)
[2021-10-19] MEDS: SEVELAMER CARBONATE 800 MG TABLET PO SCH ×3 (11:12→17:30)
[2021-10-19] MEDS: INSULIN REGULAR 100 UNIT/ML SUBCUT SCH ×4 (11:12→22:05)
[2021-10-19] MEDS: DOCUSATE SODIUM 100 MG CAPSULE PO SCH ×2 (11:12→22:05)
[2021-10-19] MEDS: carvediloL 6.25 MG TABLET PO SCH ×2 (11:12→17:30)
[2021-10-19] MEDS: ASPIRIN EC 81 MG TABLET PO SCH (12:00)
[2021-10-19] MEDS: PANTOPRAZOLE 40 MG TABLET PO SCH (12:01)
[2021-10-19] MEDS: FERROUS SULFATE 325 MG TABLET PO SCH (12:01)
[2021-10-19] MEDS: CIPROFLOXACIN INJ 200 MG/100 ML PREMIX IV SCH (17:31)
[2021-10-19] MEDS: ATORVASTATIN 80 MG TABLET PO SCH (21:57)
[2021-10-20 05:38] LABS: Basophils # 0.1 10*3/uL (0.0-0.2); Basophils % 0.2 % (0.0-0.8); Eosinophils # 0.2 10*3/uL (0.0-0.87); Eosinophils % 0.6 % (0.00-10.9); Hematocrit 23.2 VOL% (42.0-52.0); Hemoglobin 7.2 GM/DL (14.0-18.0); Immature Granulocytes % 1.8 %; Immature Granulocytes Absolute 0.43 #; Lymphocytes # 1.9 10*3/uL (1.4-4.0); Lymphocytes % 7.8 % (21.2-54.2); Mean Corpuscular Volume 83.8 FL (87-102); Mean Platelet Volume 9.3 FL (9.6-12.0); Monocytes # 2.7 10*3/uL (0.11-0.8); Monocytes % 11.2 % (1.7-12.7); Neutrophils % 78.4 % (38.7-73.9); Platelet Count 210 T/CUMM (130-400); Red Blood Count 2.77 MC/CUMM (3.8-5.5); White Blood Count 24.3 T/CUMM (4-12)
[2021-10-20 05:56] LABS: Calcium 6.4 MG/DL (8.5-10.1); Osmolality,Calculated 284.4 MOS/KG (273-304); Potassium 3.7 MMOL/L (3.5-5.1)
[2021-10-20 06:02] LABS: Eosinophils 1 % (0-10); Hypochromia 1+; Lymphocytes 7 % (20-55); Microcytosis Slight; Platelet Estimate Adequate; Total Cells Counted 100
[2021-10-20] MEDS: DOCUSATE SODIUM 100 MG CAPSULE PO SCH ×2 (08:48→21:10)
[2021-10-20] MEDS: SEVELAMER CARBONATE 800 MG TABLET PO SCH ×3 (08:48→16:40)
[2021-10-20] MEDS: ASPIRIN EC 81 MG TABLET PO SCH (08:48)
[2021-10-20] MEDS: FERROUS SULFATE 325 MG TABLET PO SCH (08:48)
[2021-10-20] MEDS: PANTOPRAZOLE 40 MG TABLET PO SCH (08:48)
[2021-10-20] MEDS: INSULIN REGULAR 100 UNIT/ML SUBCUT SCH ×4 (08:48→21:10)
[2021-10-20] MEDS: carvediloL 6.25 MG TABLET PO SCH ×2 (08:48→16:41)
[2021-10-20] MEDS: SODIUM HYPOCHLORITE 0.25% IRRIG 473 ML BOTTLE TOP SCH (08:51)
[2021-10-20] MEDS ORDERED: HYDROmorphone 1 MG/1 ML SYRINGE IV ONE (15:20)
[2021-10-20 15:30] LABS: Calcium 8.5 MG/DL (8.5-10.1); Potassium 3.1 MMOL/L (3.5-5.1)
[2021-10-20] MEDS: CIPROFLOXACIN INJ 200 MG/100 ML PREMIX IV SCH (17:30)
[2021-10-20] MEDS: ATORVASTATIN 80 MG TABLET PO SCH (21:10)
[2021-10-21 05:25] LABS: Basophils # 0.1 10*3/uL (0.0-0.2); Basophils % 0.6 % (0.0-0.8); Eosinophils # 0.2 10*3/uL (0.0-0.87); Eosinophils % 1.2 % (0.00-10.9); Hematocrit 23.9 VOL% (42.0-52.0); Hemoglobin 7.2 GM/DL (14.0-18.0); Immature Granulocytes % 1.2 %; Immature Granulocytes Absolute 0.22 #; Lymphocytes # 1.5 10*3/uL (1.4-4.0); Lymphocytes % 8.7 % (21.2-54.2); Mean Corpuscular HGB Conc 30.1 GM/DL (32-36); Mean Corpuscular Volume 84.2 FL (87-102); Mean Platelet Volume 9.6 FL (9.6-12.0); Monocytes # 1.9 10*3/uL (0.11-0.8); Monocytes % 10.5 % (1.7-12.7); Neutrophils % 77.8 % (38.7-73.9); Platelet Count 257 T/CUMM (130-400); Red Blood Count 2.84 MC/CUMM (3.8-5.5); Red Cell Distribution Width 16.7 % (9.3-17.3); White Blood Count 17.7 T/CUMM (4-12)
[2021-10-21 05:37] LABS: Calcium 8.1 MG/DL (8.5-10.1); Osmolality,Calculated 282.1 MOS/KG (273-304); Potassium 3.3 MMOL/L (3.5-5.1)
[2021-10-21 05:40] LABS: Uric Acid 5.9 MG/DL (3.5-7.2)
[2021-10-21] MEDS ORDERED: SODIUM CHLORIDE 0.9% 250 ML IV SCH (08:30)
[2021-10-21] MEDS ORDERED: SODIUM CHLORIDE 0.9% 1,000 ML IV PRN (08:40)
[2021-10-21] MEDS ORDERED: propofoL 200 MG/20 ML VIAL IV ONE (08:58)
[2021-10-21] MEDS ORDERED: PHENYLEPHRINE 1 MG/10 ML SYRINGE IV ONE (08:58)
[2021-10-21] MEDS ORDERED: fentaNYL 100 MCG/2 ML VIAL ONE (08:58)
[2021-10-21] MEDS ORDERED: LIDOCAINE 2% 5 ML VIAL ONE (08:58)
[2021-10-21] MEDS ORDERED: MIDAZOLAM 2 MG/2 ML VIAL ONE (08:59)
[2021-10-21] MEDS ORDERED: PHENYLEPHRINE 10 MG/1 ML VIAL IV ONE (09:02)
[2021-10-21] MEDS ORDERED: GLYCOPYRROLATE 0.4 MG/2 ML VIAL ONE ×2 (09:54→10:20)
[2021-10-21] MEDS ORDERED: ePHEDrine 50 MG/ML VIAL ONE (09:55)
[2021-10-21] MEDS ORDERED: SODIUM BICARBONATE 50 MEQ/50 ML VIAL IV ONE (10:19)
[2021-10-21 10:20] LABS: ABG Base Excess -6.1 MMOL/L (-2.5-2.5); ABG HCO3 19.4 MMOL/L (20-26); ABG Oxygen Saturation 99.3 % (95-100); ABG PCO2 46.5 MM HG (35-48); ABG PH 7.259 (7.35-7.45); ABG TCO2 19.6 MMOL/L (23-27); Glucose Heart Surgery 265 MG/DL (74-106); Hematocrit Heart Surgery 26.6 PERCENT (42-52); Hemoglobin Heart Surgery 8.6 G/DL (14.0-18.0); PCO2 Patient Temp Arterial 46.5 MMHG; PH Patient Temp Arterial 7.259; Patient Temperature 37 CELCIUS; Potassium Heart/CVR 3.7 MMOL/L (3.5-5.1); Sodium Heart/CVR 135 MMOL/L (135-145)
[2021-10-21] MEDS ORDERED: EPINEPHrine 1 MG/10 ML SYRINGE ONE (10:20)
[2021-10-21] MEDS ORDERED: CALCIUM CHLORIDE 1,000 MG/10 ML VIAL IV ONE (10:28)
[2021-10-21] MEDS ORDERED: SODIUM CHLORIDE 0.9% 250 ML IV ONE ×2 (10:29→10:39)
[2021-10-21] MEDS ORDERED: EPINEPHrine 1 MG/ML VIAL ONE (10:39)
[2021-10-21] MEDS ORDERED: SEVOFLURANE 1 UNIT/15 MINUTE INH ONE (10:39)
[2021-10-21] MEDS ORDERED: SUGAMMADEX 200 MG/2 ML VIAL IV ONE (10:44)
[2021-10-21] MEDS: MEPERIDINE 25 MG/1 ML VIAL IV PRN ×2 (11:30→11:40)
[2021-10-21] MEDS ORDERED: ONDANSETRON 4 MG/2 ML VIAL IV PRN (12:14)
[2021-10-21] MEDS ORDERED: PROMETHAZINE INJ 25 MG in SODIUM CHLORIDE 0.9% 50 ML IV PRN (12:14)
[2021-10-21] MEDS: INSULIN REGULAR 100 UNIT/ML SUBCUT SCH ×4 (12:54→20:55)
[2021-10-21] MEDS: PANTOPRAZOLE 40 MG TABLET PO SCH (13:32)
[2021-10-21] MEDS: carvediloL 6.25 MG TABLET PO SCH ×2 (13:32→16:57)
[2021-10-21] MEDS: SEVELAMER CARBONATE 800 MG TABLET PO SCH ×3 (13:32→17:10)
[2021-10-21] MEDS: FERROUS SULFATE 325 MG TABLET PO SCH (13:32)
[2021-10-21] MEDS: DOCUSATE SODIUM 100 MG CAPSULE PO SCH ×2 (13:32→20:54)
[2021-10-21] MEDS: ASPIRIN EC 81 MG TABLET PO SCH (13:52)
[2021-10-21] MEDS: SODIUM HYPOCHLORITE 0.25% IRRIG 473 ML BOTTLE TOP SCH (16:58)
[2021-10-21] MEDS: CIPROFLOXACIN INJ 200 MG/100 ML PREMIX IV SCH (18:34)
[2021-10-21] MEDS: ACETAMINOPHEN 325 MG TABLET PO PRN (20:55)
[2021-10-21] MEDS: ATORVASTATIN 80 MG TABLET PO SCH (20:55)
[2021-10-21] MEDS: HYDROmorphone 1 MG/1 ML SYRINGE IV PRN (23:13)
[2021-10-22 05:45] LABS: Basophils # 0.1 10*3/uL (0.0-0.2); Basophils % 0.6 % (0.0-0.8); Eosinophils # 0.2 10*3/uL (0.0-0.87); Eosinophils % 1.2 % (0.00-10.9); Hematocrit 30.7 VOL% (42.0-52.0); Hemoglobin 9.6 GM/DL (14.0-18.0); Immature Granulocytes % 0.7 %; Immature Granulocytes Absolute 0.11 #; Lymphocytes # 1.6 10*3/uL (1.4-4.0); Lymphocytes % 9.4 % (21.2-54.2); Mean Corpuscular HGB Conc 31.3 GM/DL (32-36); Mean Corpuscular Volume 84.6 FL (87-102); Mean Platelet Volume 9.2 FL (9.6-12.0); Monocytes # 1.9 10*3/uL (0.11-0.8); Monocytes % 11.3 % (1.7-12.7); Neutrophils % 76.8 % (38.7-73.9); Platelet Count 294 T/CUMM (130-400); Red Blood Count 3.63 MC/CUMM (3.8-5.5); Red Cell Distribution Width 16.5 % (9.3-17.3); White Blood Count 16.8 T/CUMM (4-12)
[2021-10-22 06:02] LABS: Calcium 8.1 MG/DL (8.5-10.1); Osmolality,Calculated 275.5 MOS/KG (273-304); Potassium 3.5 MMOL/L (3.5-5.1)
[2021-10-22] MEDS: INSULIN REGULAR 100 UNIT/ML SUBCUT SCH ×4 (08:51→21:06)
[2021-10-22] MEDS: carvediloL 6.25 MG TABLET PO SCH ×2 (10:54→17:25)
[2021-10-22] MEDS: SEVELAMER CARBONATE 800 MG TABLET PO SCH ×3 (10:55→17:25)
[2021-10-22] MEDS: HYDROmorphone 1 MG/1 ML SYRINGE IV PRN (13:13)
[2021-10-22] MEDS: DOCUSATE SODIUM 100 MG CAPSULE PO SCH ×2 (13:14→21:06)
[2021-10-22] MEDS: ASPIRIN EC 81 MG TABLET PO SCH (13:14)
[2021-10-22] MEDS: PANTOPRAZOLE 40 MG TABLET PO SCH (13:14)
[2021-10-22] MEDS: FERROUS SULFATE 325 MG TABLET PO SCH (13:27)
[2021-10-22] MEDS: SODIUM HYPOCHLORITE 0.25% IRRIG 473 ML BOTTLE TOP SCH (15:21)
[2021-10-22] MEDS: CIPROFLOXACIN INJ 200 MG/100 ML PREMIX IV SCH (18:27)
[2021-10-22] MEDS: ATORVASTATIN 80 MG TABLET PO SCH (21:06)
[2021-10-23] MEDS: HYDROmorphone 1 MG/1 ML SYRINGE IV PRN ×4 (04:21→19:53)
[2021-10-23 05:46] LABS: Basophils # 0.2 10*3/uL (0.0-0.2); Basophils % 1.3 % (0.0-0.8); Eosinophils # 0.3 10*3/uL (0.0-0.87); Eosinophils % 1.7 % (0.00-10.9); Hematocrit 30.1 VOL% (42.0-52.0); Hemoglobin 9.5 GM/DL (14.0-18.0); Immature Granulocytes Absolute 0.14 #; Lymphocytes # 1.4 10*3/uL (1.4-4.0); Mean Corpuscular HGB Conc 31.6 GM/DL (32-36); Mean Corpuscular Volume 84.8 FL (87-102); Mean Platelet Volume 9.1 FL (9.6-12.0); Monocytes # 2.1 10*3/uL (0.11-0.8); Monocytes % 14.7 % (1.7-12.7); Neutrophils % 71.3 % (38.7-73.9); Platelet Count 309 T/CUMM (130-400); Red Blood Count 3.55 MC/CUMM (3.8-5.5); Red Cell Distribution Width 16.9 % (9.3-17.3); White Blood Count 14.4 T/CUMM (4-12)
[2021-10-23 06:02] LABS: Calcium 7.4 MG/DL (8.5-10.1); Osmolality,Calculated 274.5 MOS/KG (273-304); Potassium 3.4 MMOL/L (3.5-5.1)
[2021-10-23] MEDS: carvediloL 6.25 MG TABLET PO SCH ×2 (08:09→17:04)
[2021-10-23] MEDS: ASPIRIN EC 81 MG TABLET PO SCH (08:10)
[2021-10-23] MEDS: DOCUSATE SODIUM 100 MG CAPSULE PO SCH ×2 (08:10→20:40)
[2021-10-23] MEDS: PANTOPRAZOLE 40 MG TABLET PO SCH (08:10)
[2021-10-23] MEDS: SEVELAMER CARBONATE 800 MG TABLET PO SCH ×3 (08:10→17:04)
[2021-10-23] MEDS: INSULIN REGULAR 100 UNIT/ML SUBCUT SCH ×4 (08:10→20:04)
[2021-10-23] MEDS: FERROUS SULFATE 325 MG TABLET PO SCH (08:10)
[2021-10-23] MEDS: SODIUM HYPOCHLORITE 0.25% IRRIG 473 ML BOTTLE TOP SCH (15:57)
[2021-10-23] MEDS: CIPROFLOXACIN INJ 200 MG/100 ML PREMIX IV SCH (17:43)
[2021-10-23] MEDS: ATORVASTATIN 80 MG TABLET PO SCH (20:40)
[2021-10-24 05:17] LABS: Basophils # 0.2 10*3/uL (0.0-0.2); Eosinophils # 0.3 10*3/uL (0.0-0.87); Eosinophils % 1.9 % (0.00-10.9); Hematocrit 27.5 VOL% (42.0-52.0); Hemoglobin 8.6 GM/DL (14.0-18.0); Immature Granulocytes % 0.8 %; Immature Granulocytes Absolute 0.13 #; Lymphocytes # 2.1 10*3/uL (1.4-4.0); Lymphocytes % 13.2 % (21.2-54.2); Mean Corpuscular HGB Conc 31.3 GM/DL (32-36); Mean Corpuscular Volume 84.1 FL (87-102); Mean Platelet Volume 8.9 FL (9.6-12.0); Monocytes # 2.1 10*3/uL (0.11-0.8); Monocytes % 13.1 % (1.7-12.7); Platelet Count 297 T/CUMM (130-400); Red Blood Count 3.27 MC/CUMM (3.8-5.5); Red Cell Distribution Width 16.7 % (9.3-17.3); White Blood Count 16.2 T/CUMM (4-12)
[2021-10-24 05:28] LABS: Calcium 7.8 MG/DL (8.5-10.1); Osmolality,Calculated 273.5 MOS/KG (273-304); Potassium 3.4 MMOL/L (3.5-5.1)
[2021-10-24] MEDS: HYDROmorphone 1 MG/1 ML SYRINGE IV PRN ×2 (05:32→19:15)
[2021-10-24] MEDS: INSULIN REGULAR 100 UNIT/ML SUBCUT SCH ×4 (07:36→20:46)
[2021-10-24] MEDS: SODIUM HYPOCHLORITE 0.25% IRRIG 473 ML BOTTLE TOP SCH (09:10)
[2021-10-24] MEDS: ASPIRIN EC 81 MG TABLET PO SCH (09:11)
[2021-10-24] MEDS: PANTOPRAZOLE 40 MG TABLET PO SCH (09:11)
[2021-10-24] MEDS: SEVELAMER CARBONATE 800 MG TABLET PO SCH ×3 (09:11→16:57)
[2021-10-24] MEDS: carvediloL 6.25 MG TABLET PO SCH ×2 (09:11→16:47)
[2021-10-24] MEDS: DOCUSATE SODIUM 100 MG CAPSULE PO SCH ×2 (09:11→21:29)
[2021-10-24] MEDS: FERROUS SULFATE 325 MG TABLET PO SCH (09:11)
[2021-10-24] MEDS: CIPROFLOXACIN INJ 200 MG/100 ML PREMIX IV SCH (17:48)
[2021-10-24] MEDS: ATORVASTATIN 80 MG TABLET PO SCH (21:30)
[2021-10-25 05:17] LABS: Basophils # 0.2 10*3/uL (0.0-0.2); Basophils % 1.2 % (0.0-0.8); Eosinophils # 0.3 10*3/uL (0.0-0.87); Eosinophils % 2.2 % (0.00-10.9); Hemoglobin 8.7 GM/DL (14.0-18.0); Immature Granulocytes % 0.8 %; Immature Granulocytes Absolute 0.12 #; Lymphocytes # 2.1 10*3/uL (1.4-4.0); Lymphocytes % 13.6 % (21.2-54.2); Mean Corpuscular HGB Conc 31.1 GM/DL (32-36); Mean Corpuscular Volume 84.8 FL (87-102); Monocytes # 2.1 10*3/uL (0.11-0.8); Monocytes % 13.5 % (1.7-12.7); Neutrophils % 68.7 % (38.7-73.9); Platelet Count 325 T/CUMM (130-400); Red Cell Distribution Width 16.9 % (9.3-17.3); White Blood Count 15.4 T/CUMM (4-12)
[2021-10-25 05:38] LABS: Osmolality,Calculated 274.7 MOS/KG (273-304); Potassium 3.4 MMOL/L (3.5-5.1)
[2021-10-25] MEDS: HYDROmorphone 1 MG/1 ML SYRINGE IV PRN ×3 (06:00→21:31)
[2021-10-25] MEDS: FERROUS SULFATE 325 MG TABLET PO SCH (08:17)
[2021-10-25] MEDS: SEVELAMER CARBONATE 800 MG TABLET PO SCH ×3 (08:17→16:39)
[2021-10-25] MEDS: DOCUSATE SODIUM 100 MG CAPSULE PO SCH ×2 (08:17→21:31)
[2021-10-25] MEDS: PANTOPRAZOLE 40 MG TABLET PO SCH (08:17)
[2021-10-25] MEDS: ASPIRIN EC 81 MG TABLET PO SCH (08:17)
[2021-10-25] MEDS: INSULIN REGULAR 100 UNIT/ML SUBCUT SCH ×4 (08:17→21:33)
[2021-10-25] MEDS: carvediloL 6.25 MG TABLET PO SCH ×2 (08:18→16:39)
[2021-10-25] MEDS: SODIUM HYPOCHLORITE 0.25% IRRIG 473 ML BOTTLE TOP SCH (08:22)
[2021-10-25] MEDS: CIPROFLOXACIN INJ 200 MG/100 ML PREMIX IV SCH (17:25)
[2021-10-25] MEDS: ATORVASTATIN 80 MG TABLET PO SCH (21:31)
[2021-10-26 05:52] LABS: Basophils # 0.2 10*3/uL (0.0-0.2); Basophils % 1.2 % (0.0-0.8); Eosinophils # 0.3 10*3/uL (0.0-0.87); Eosinophils % 2.6 % (0.00-10.9); Hematocrit 28.8 VOL% (42.0-52.0); Hemoglobin 8.7 GM/DL (14.0-18.0); Immature Granulocytes % 1.1 %; Immature Granulocytes Absolute 0.14 #; Lymphocytes # 1.4 10*3/uL (1.4-4.0); Lymphocytes % 10.8 % (21.2-54.2); Mean Corpuscular HGB Conc 30.2 GM/DL (32-36); Mean Platelet Volume 9.6 FL (9.6-12.0); Monocytes # 1.5 10*3/uL (0.11-0.8); Monocytes % 11.5 % (1.7-12.7); Neutrophils % 72.8 % (38.7-73.9); Platelet Count 312 T/CUMM (130-400); Red Blood Count 3.35 MC/CUMM (3.8-5.5); Red Cell Distribution Width 16.7 % (9.3-17.3); White Blood Count 12.9 T/CUMM (4-12)
[2021-10-26 06:06] LABS: Calcium 7.8 MG/DL (8.5-10.1); Osmolality,Calculated 275.2 MOS/KG (273-304); Potassium 2.9 MMOL/L (3.5-5.1)
[2021-10-26] MEDS: DOCUSATE SODIUM 100 MG CAPSULE PO SCH ×2 (08:36→21:10)
[2021-10-26] MEDS: ASPIRIN EC 81 MG TABLET PO SCH (08:36)
[2021-10-26] MEDS: PANTOPRAZOLE 40 MG TABLET PO SCH (08:36)
[2021-10-26] MEDS: FERROUS SULFATE 325 MG TABLET PO SCH (08:41)
[2021-10-26] MEDS: HYDROmorphone 1 MG/1 ML SYRINGE IV PRN ×2 (08:43→16:05)
[2021-10-26] MEDS: carvediloL 6.25 MG TABLET PO SCH ×2 (08:43→16:03)
[2021-10-26] MEDS: SEVELAMER CARBONATE 800 MG TABLET PO SCH ×3 (08:44→16:03)
[2021-10-26] MEDS: SODIUM HYPOCHLORITE 0.25% IRRIG 473 ML BOTTLE TOP SCH (08:44)
[2021-10-26] MEDS: INSULIN REGULAR 100 UNIT/ML SUBCUT SCH ×4 (09:55→21:10)
[2021-10-26] MEDS ORDERED: POTASSIUM CHLORIDE 20 MEQ TABLET PO ONE (11:14)
[2021-10-26] MEDS: ONDANSETRON 4 MG/2 ML VIAL IV PRN (12:29)
[2021-10-26] MEDS: ATORVASTATIN 80 MG TABLET PO SCH (21:10)
[2021-10-27 05:13] LABS: Hematocrit 26.4 VOL% (42.0-52.0); Hemoglobin 8.2 GM/DL (14.0-18.0)
[2021-10-27 05:33] LABS: Calcium 7.9 MG/DL (8.5-10.1); Potassium 2.7 MMOL/L (3.5-5.1)
[2021-10-27] MEDS: HYDROmorphone 1 MG/1 ML SYRINGE IV PRN ×2 (07:27→12:18)
[2021-10-27] MEDS ORDERED: POTASSIUM CHLORIDE 20 MEQ TABLET PO ONE (08:01)
[2021-10-27] MEDS: INSULIN REGULAR 100 UNIT/ML SUBCUT SCH ×4 (10:07→21:22)
[2021-10-27] MEDS: carvediloL 6.25 MG TABLET PO SCH ×2 (10:08→16:13)
[2021-10-27] MEDS: SEVELAMER CARBONATE 800 MG TABLET PO SCH ×3 (10:08→16:06)
[2021-10-27] MEDS: DOCUSATE SODIUM 100 MG CAPSULE PO SCH ×2 (10:09→21:23)
[2021-10-27] MEDS: ASPIRIN EC 81 MG TABLET PO SCH (10:09)
[2021-10-27] MEDS: PANTOPRAZOLE 40 MG TABLET PO SCH (10:09)
[2021-10-27] MEDS: FERROUS SULFATE 325 MG TABLET PO SCH (10:09)
[2021-10-27] MEDS: SODIUM HYPOCHLORITE 0.25% IRRIG 473 ML BOTTLE TOP SCH (12:14)
[2021-10-27] MEDS: HEPARIN 5,000 UNIT/1 ML VIAL SUBCUT SCH (14:27)
[2021-10-27] MEDS: ATORVASTATIN 80 MG TABLET PO SCH (21:23)
[2021-10-28] MEDS: HEPARIN 5,000 UNIT/1 ML VIAL SUBCUT SCH ×2 (05:47→17:44)
[2021-10-28] MEDS: HYDROmorphone 1 MG/1 ML SYRINGE IV PRN (06:44)
[2021-10-28 06:59] LABS: Calcium 8.1 MG/DL (8.5-10.1)
[2021-10-28 07:01] LABS: Potassium 2.3 MMOL/L (3.5-5.1)
[2021-10-28] MEDS: INSULIN REGULAR 100 UNIT/ML SUBCUT SCH ×4 (08:07→22:16)
[2021-10-28] MEDS ORDERED: POTASSIUM CHLORIDE 20 MEQ TABLET PO ONE ×2 (08:30→14:45)
[2021-10-28] MEDS: ASPIRIN EC 81 MG TABLET PO SCH (08:45)
[2021-10-28] MEDS: FERROUS SULFATE 325 MG TABLET PO SCH (08:45)
[2021-10-28] MEDS: PANTOPRAZOLE 40 MG TABLET PO SCH (08:45)
[2021-10-28] MEDS: DOCUSATE SODIUM 100 MG CAPSULE PO SCH ×2 (08:45→22:16)
[2021-10-28] MEDS: carvediloL 6.25 MG TABLET PO SCH ×2 (08:45→17:43)
[2021-10-28] MEDS: SEVELAMER CARBONATE 800 MG TABLET PO SCH ×3 (08:45→17:43)
[2021-10-28] MEDS: SODIUM HYPOCHLORITE 0.25% IRRIG 473 ML BOTTLE TOP SCH (08:51)
[2021-10-28] MEDS: ONDANSETRON 4 MG/2 ML VIAL IV PRN (10:03)
[2021-10-28] MEDS: ATORVASTATIN 80 MG TABLET PO SCH (22:16)
[2021-10-29] MEDS: HYDROmorphone 1 MG/1 ML SYRINGE IV PRN (01:55)
[2021-10-29] MEDS: HEPARIN 5,000 UNIT/1 ML VIAL SUBCUT SCH ×2 (05:56→17:18)
[2021-10-29 06:20] LABS: Basophils # 0.1 10*3/uL (0.0-0.2); Basophils % 1.1 % (0.0-0.8); Eosinophils # 0.3 10*3/uL (0.0-0.87); Eosinophils % 2.3 % (0.00-10.9); Hematocrit 26.5 VOL% (42.0-52.0); Hemoglobin 8.1 GM/DL (14.0-18.0); Immature Granulocytes % 0.8 %; Immature Granulocytes Absolute 0.11 #; Lymphocytes # 1.8 10*3/uL (1.4-4.0); Lymphocytes % 13.5 % (21.2-54.2); Mean Corpuscular HGB Conc 30.6 GM/DL (32-36); Mean Platelet Volume 8.8 FL (9.6-12.0); Monocytes # 1.7 10*3/uL (0.11-0.8); Monocytes % 13.2 % (1.7-12.7); Neutrophils % 69.1 % (38.7-73.9); Platelet Count 374 T/CUMM (130-400); Red Blood Count 3.08 MC/CUMM (3.8-5.5); Red Cell Distribution Width 16.8 % (9.3-17.3); White Blood Count 13.2 T/CUMM (4-12)
[2021-10-29 06:49] LABS: Calcium 7.6 MG/DL (8.5-10.1); Osmolality,Calculated 287.5 MOS/KG (273-304)
[2021-10-29 06:51] LABS: Potassium 2.1 MMOL/L (3.5-5.1)
[2021-10-29] MEDS: INSULIN REGULAR 100 UNIT/ML SUBCUT SCH ×3 (08:28→17:05)
[2021-10-29] MEDS ORDERED: POTASSIUM CHLORIDE 20 MEQ TABLET PO ONE (08:30)
[2021-10-29] MEDS: SEVELAMER CARBONATE 800 MG TABLET PO SCH ×3 (08:47→17:14)
[2021-10-29] MEDS: PANTOPRAZOLE 40 MG TABLET PO SCH (08:48)
[2021-10-29] MEDS: ASPIRIN EC 81 MG TABLET PO SCH (08:48)
[2021-10-29] MEDS: FERROUS SULFATE 325 MG TABLET PO SCH (08:48)
[2021-10-29] MEDS: SODIUM HYPOCHLORITE 0.25% IRRIG 473 ML BOTTLE TOP SCH (08:49)
[2021-10-29] MEDS: DOCUSATE SODIUM 100 MG CAPSULE PO SCH ×2 (10:15→20:49)
[2021-10-29] MEDS: carvediloL 6.25 MG TABLET PO SCH ×2 (14:44→17:13)
[2021-10-29] MEDS: ACETAMINOPHEN 325 MG TABLET PO PRN (17:14)
[2021-10-29] MEDS: ATORVASTATIN 80 MG TABLET PO SCH (20:49)
[2021-10-29] MEDS: POTASSIUM CHLORIDE 20 MEQ TABLET PO SCH (20:50)
[2021-10-30] MEDS: INSULIN REGULAR 100 UNIT/ML SUBCUT SCH ×4 (01:12→16:45)
[2021-10-30] MEDS: HYDROmorphone 1 MG/1 ML SYRINGE IV PRN (01:57)
[2021-10-30 05:35] LABS: Basophils # 0.2 10*3/uL (0.0-0.2); Basophils % 1.6 % (0.0-0.8); Eosinophils # 0.4 10*3/uL (0.0-0.87); Eosinophils % 3.8 % (0.00-10.9); Hematocrit 26.7 VOL% (42.0-52.0); Hemoglobin 8.1 GM/DL (14.0-18.0); Immature Granulocytes % 0.9 %; Lymphocytes # 2.3 10*3/uL (1.4-4.0); Lymphocytes % 19.9 % (21.2-54.2); Mean Corpuscular HGB Conc 30.3 GM/DL (32-36); Mean Corpuscular Volume 85.6 FL (87-102); Mean Platelet Volume 8.7 FL (9.6-12.0); Monocytes # 1.5 10*3/uL (0.11-0.8); Monocytes % 13.1 % (1.7-12.7); Neutrophils % 60.7 % (38.7-73.9); Platelet Count 392 T/CUMM (130-400); Red Blood Count 3.12 MC/CUMM (3.8-5.5); Red Cell Distribution Width 16.9 % (9.3-17.3); White Blood Count 11.6 T/CUMM (4-12)
[2021-10-30] MEDS: HEPARIN 5,000 UNIT/1 ML VIAL SUBCUT SCH ×2 (05:42→17:16)
[2021-10-30 05:54] LABS: Alanine Aminotransferase < 6 U/L (16-61); Albumin 1.2 G/DL (3.4-5.0); Alkaline Phosphatase 112 U/L (45-117); Aspartate Amino Transferase 16 U/L (0-37); Blood Urea Nitrogen 40 MG/DL (7-18); Calcium 7.6 MG/DL (8.5-10.1); Carbon Dioxide 21 MMOL/L (21-32); Chloride 108 MMOL/L (98-107); Glucose 104 MG/DL (74-106); Osmolality,Calculated 286.5 MOS/KG (273-304); Sodium 139 MMOL/L (136-145); Total Protein 6.2 G/DL (6.4-8.2)
[2021-10-30 05:56] LABS: Potassium 2.1 MMOL/L (3.5-5.1)
[2021-10-30] MEDS ORDERED: POTASSIUM CHLORIDE 20 MEQ TABLET PO ONE ×2 (08:30→16:00)
[2021-10-30] MEDS: FERROUS SULFATE 325 MG TABLET PO SCH (10:31)
[2021-10-30] MEDS: PANTOPRAZOLE 40 MG TABLET PO SCH (10:31)
[2021-10-30] MEDS: SEVELAMER CARBONATE 800 MG TABLET PO SCH ×3 (10:31→16:45)
[2021-10-30] MEDS: ASPIRIN EC 81 MG TABLET PO SCH (10:32)
[2021-10-30] MEDS: carvediloL 6.25 MG TABLET PO SCH ×2 (10:32→16:46)
[2021-10-30] MEDS: POTASSIUM CHLORIDE 20 MEQ TABLET PO SCH ×2 (10:32→23:11)
[2021-10-30] MEDS: SODIUM HYPOCHLORITE 0.25% IRRIG 473 ML BOTTLE TOP SCH (10:33)
[2021-10-30] MEDS: DOCUSATE SODIUM 100 MG CAPSULE PO SCH ×2 (11:00→23:12)
[2021-10-30] MEDS: ALBUTEROL/IPRATROPIUM 3 ML NEB RESP TX SCH ×3 (14:36→23:58)
[2021-10-30] MEDS: ATORVASTATIN 80 MG TABLET PO SCH (23:12)
[2021-10-31] MEDS: INSULIN REGULAR 100 UNIT/ML SUBCUT SCH ×5 (00:36→21:09)
[2021-10-31 05:39] LABS: Basophils # 0.2 10*3/uL (0.0-0.2); Basophils % 1.3 % (0.0-0.8); Eosinophils # 0.6 10*3/uL (0.0-0.87); Eosinophils % 4.3 % (0.00-10.9); Hematocrit 26.6 VOL% (42.0-52.0); Hemoglobin 8.2 GM/DL (14.0-18.0); Immature Granulocytes % 0.8 %; Lymphocytes % 15.8 % (21.2-54.2); Mean Corpuscular HGB Conc 30.8 GM/DL (32-36); Mean Platelet Volume 8.6 FL (9.6-12.0); Monocytes # 2.1 10*3/uL (0.11-0.8); Monocytes % 16.8 % (1.7-12.7); Platelet Count 424 T/CUMM (130-400); Red Blood Count 3.13 MC/CUMM (3.8-5.5); Red Cell Distribution Width 16.7 % (9.3-17.3); White Blood Count 12.7 T/CUMM (4-12)
[2021-10-31 05:57] LABS: Calcium 7.8 MG/DL (8.5-10.1); Osmolality,Calculated 286.8 MOS/KG (273-304)
[2021-10-31 05:58] LABS: Potassium 2.2 MMOL/L (3.5-5.1)
[2021-10-31 06:19] LABS: Eosinophils 10 % (0-10); Hypochromia Slight; Lymphocytes 16 % (20-55); Microcytosis 1+; Total Cells Counted 100
[2021-10-31 06:20] LABS: Burr Cells Slight; Ovalocytes Slight; Platelet Estimate Increased; Polychromasia Slight
[2021-10-31] MEDS: ALBUTEROL/IPRATROPIUM 3 ML NEB RESP TX SCH ×3 (07:30→19:46)
[2021-10-31] MEDS: ASPIRIN EC 81 MG TABLET PO SCH (08:14)
[2021-10-31] MEDS: SEVELAMER CARBONATE 800 MG TABLET PO SCH ×3 (08:14→17:49)
[2021-10-31] MEDS: FERROUS SULFATE 325 MG TABLET PO SCH (08:14)
[2021-10-31] MEDS: PANTOPRAZOLE 40 MG TABLET PO SCH (08:14)
[2021-10-31] MEDS: POTASSIUM CHLORIDE 20 MEQ TABLET PO SCH (08:14)
[2021-10-31] MEDS: carvediloL 6.25 MG TABLET PO SCH ×2 (08:14→17:49)
[2021-10-31] MEDS: SODIUM HYPOCHLORITE 0.25% IRRIG 473 ML BOTTLE TOP SCH (08:15)
[2021-10-31] MEDS: HEPARIN 5,000 UNIT/1 ML VIAL SUBCUT SCH ×2 (08:16→18:14)
[2021-10-31] MEDS ORDERED: POTASSIUM CHLORIDE RIDER 10 MEQ/100 ML PREMIX IV PRN (09:29)
[2021-10-31] MEDS: DOCUSATE SODIUM 100 MG CAPSULE PO SCH ×2 (13:54→21:09)
[2021-10-31] MEDS: POTASSIUM BICARB EFFERVESCENT 20 MEQ TAB.EFF PO SCH ×2 (17:49→21:10)
[2021-10-31] MEDS: ATORVASTATIN 80 MG TABLET PO SCH (21:09)
[2021-10-31] MEDS: POTASSIUM CHLORIDE RIDER 20 MEQ/100 ML PREMIX IV PRN ×2 (21:09→23:09)
[2021-11-01] MEDS: ALBUTEROL/IPRATROPIUM 3 ML NEB RESP TX SCH ×4 (00:25→19:25)
[2021-11-01] MEDS: POTASSIUM CHLORIDE RIDER 20 MEQ/100 ML PREMIX IV PRN (01:13)
[2021-11-01] MEDS: HEPARIN 5,000 UNIT/1 ML VIAL SUBCUT SCH ×2 (06:20→17:50)
[2021-11-01 06:31] LABS: Basophils # 0.2 10*3/uL (0.0-0.2); Basophils % 1.3 % (0.0-0.8); Eosinophils # 0.6 10*3/uL (0.0-0.87); Eosinophils % 4.9 % (0.00-10.9); Hematocrit 25.9 VOL% (42.0-52.0); Hemoglobin 7.8 GM/DL (14.0-18.0); Immature Granulocytes Absolute 0.11 #; Lymphocytes % 17.1 % (21.2-54.2); Mean Corpuscular HGB Conc 30.1 GM/DL (32-36); Mean Corpuscular Volume 84.9 FL (87-102); Mean Platelet Volume 8.6 FL (9.6-12.0); Monocytes # 1.8 10*3/uL (0.11-0.8); Monocytes % 15.9 % (1.7-12.7); Neutrophils % 59.8 % (38.7-73.9); Platelet Count 414 T/CUMM (130-400); Red Blood Count 3.05 MC/CUMM (3.8-5.5); Red Cell Distribution Width 17.1 % (9.3-17.3); White Blood Count 11.5 T/CUMM (4-12)
[2021-11-01 06:58] LABS: Band Neutrophils 1 % (0-10); Eosinophils 8 % (0-10); Hypochromia Slight; Lymphocytes 17 % (20-55); Microcytosis Slight; Platelet Estimate Adequate; Total Cells Counted 100
[2021-11-01 07:03] LABS: Osmolality,Calculated 291.8 MOS/KG (273-304); Potassium 2.6 MMOL/L (3.5-5.1)
[2021-11-01] MEDS: FERROUS SULFATE 325 MG TABLET PO SCH (08:02)
[2021-11-01] MEDS: PANTOPRAZOLE 40 MG TABLET PO SCH (08:02)
[2021-11-01] MEDS: ASPIRIN EC 81 MG TABLET PO SCH (08:02)
[2021-11-01] MEDS: POTASSIUM BICARB EFFERVESCENT 20 MEQ TAB.EFF PO SCH ×3 (08:02→21:18)
[2021-11-01] MEDS: SEVELAMER CARBONATE 800 MG TABLET PO SCH ×3 (08:02→17:50)
[2021-11-01] MEDS: carvediloL 6.25 MG TABLET PO SCH ×2 (08:02→17:50)
[2021-11-01] MEDS: INSULIN REGULAR 100 UNIT/ML SUBCUT SCH ×4 (08:13→21:17)
[2021-11-01] MEDS: DOCUSATE SODIUM 100 MG CAPSULE PO SCH ×2 (08:14→22:31)
[2021-11-01] MEDS ORDERED: TUBERCULIN SKIN TEST 0.1 ML SYRINGE INTRADERM ONE (16:24)
[2021-11-01] MEDS: SODIUM HYPOCHLORITE 0.25% IRRIG 473 ML BOTTLE TOP SCH (17:49)
[2021-11-01] MEDS: HYDROmorphone 1 MG/1 ML SYRINGE IV PRN (18:50)
[2021-11-01] MEDS: ATORVASTATIN 80 MG TABLET PO SCH (21:17)
[2021-11-02] MEDS: ALBUTEROL/IPRATROPIUM 3 ML NEB RESP TX SCH ×4 (00:36→19:13)
[2021-11-02] MEDS: HEPARIN 5,000 UNIT/1 ML VIAL SUBCUT SCH ×2 (05:37→17:09)
[2021-11-02 06:22] LABS: Basophils # 0.2 10*3/uL (0.0-0.2); Basophils % 1.8 % (0.0-0.8); Eosinophils # 0.6 10*3/uL (0.0-0.87); Hematocrit 27.8 VOL% (42.0-52.0); Hemoglobin 8.4 GM/DL (14.0-18.0); Immature Granulocytes % 2.1 %; Immature Granulocytes Absolute 0.26 #; Lymphocytes # 2.5 10*3/uL (1.4-4.0); Lymphocytes % 20.2 % (21.2-54.2); Mean Corpuscular HGB Conc 30.2 GM/DL (32-36); Mean Corpuscular Volume 85.8 FL (87-102); Mean Platelet Volume 8.9 FL (9.6-12.0); Monocytes # 2.2 10*3/uL (0.11-0.8); Monocytes % 18.2 % (1.7-12.7); Neutrophils % 52.7 % (38.7-73.9); Platelet Count 424 T/CUMM (130-400); Red Blood Count 3.24 MC/CUMM (3.8-5.5); Red Cell Distribution Width 17.6 % (9.3-17.3); White Blood Count 12.3 T/CUMM (4-12)
[2021-11-02 06:38] LABS: Osmolality,Calculated 291.5 MOS/KG (273-304); Potassium 3.2 MMOL/L (3.5-5.1)
[2021-11-02 06:44] LABS: Eosinophils 3 % (0-10); Lymphocytes 16 % (20-55); Microcytosis 1+; Polychromasia Slight; Total Cells Counted 100
[2021-11-02 06:45] LABS: Hypochromia Slight; Platelet Estimate Increased
[2021-11-02] MEDS: ASPIRIN EC 81 MG TABLET PO SCH (08:42)
[2021-11-02] MEDS: SEVELAMER CARBONATE 800 MG TABLET PO SCH ×3 (08:42→17:09)
[2021-11-02] MEDS: FERROUS SULFATE 325 MG TABLET PO SCH (08:42)
[2021-11-02] MEDS: carvediloL 6.25 MG TABLET PO SCH ×2 (08:42→17:09)
[2021-11-02] MEDS: PANTOPRAZOLE 40 MG TABLET PO SCH (08:42)
[2021-11-02] MEDS: DOCUSATE SODIUM 100 MG CAPSULE PO SCH ×2 (08:42→20:43)
[2021-11-02] MEDS: INSULIN REGULAR 100 UNIT/ML SUBCUT SCH ×4 (08:43→21:02)
[2021-11-02] MEDS: POTASSIUM CHLORIDE RIDER 20 MEQ/100 ML PREMIX IV PRN ×2 (08:44→10:56)
[2021-11-02] MEDS: POTASSIUM BICARB EFFERVESCENT 20 MEQ TAB.EFF PO SCH ×3 (08:44→21:02)
[2021-11-02] MEDS: SODIUM HYPOCHLORITE 0.25% IRRIG 473 ML BOTTLE TOP SCH (08:44)
[2021-11-02] MEDS: ATORVASTATIN 80 MG TABLET PO SCH (21:01)
[2021-11-03] MEDS: ALBUTEROL/IPRATROPIUM 3 ML NEB RESP TX SCH ×4 (01:19→19:59)
[2021-11-03 05:08] LABS: Basophils # 0.2 10*3/uL (0.0-0.2); Basophils % 1.4 % (0.0-0.8); Eosinophils # 0.5 10*3/uL (0.0-0.87); Eosinophils % 4.4 % (0.00-10.9); Hematocrit 26.9 VOL% (42.0-52.0); Immature Granulocytes % 2.1 %; Immature Granulocytes Absolute 0.26 #; Lymphocytes # 2.6 10*3/uL (1.4-4.0); Lymphocytes % 21.3 % (21.2-54.2); Mean Corpuscular HGB Conc 29.7 GM/DL (32-36); Mean Corpuscular Volume 86.2 FL (87-102); Mean Platelet Volume 8.8 FL (9.6-12.0); Monocytes % 16.7 % (1.7-12.7); Neutrophils % 54.1 % (38.7-73.9); Platelet Count 406 T/CUMM (130-400); Red Blood Count 3.12 MC/CUMM (3.8-5.5); White Blood Count 12.2 T/CUMM (4-12)
[2021-11-03 05:25] LABS: Osmolality,Calculated 289.8 MOS/KG (273-304); Potassium 3.8 MMOL/L (3.5-5.1)
[2021-11-03] MEDS: HEPARIN 5,000 UNIT/1 ML VIAL SUBCUT SCH ×2 (05:27→17:11)
[2021-11-03 05:45] LABS: Band Neutrophils 1 % (0-10); Eosinophils 4 % (0-10); Lymphocytes 27 % (20-55); Platelet Estimate Adequate; Total Cells Counted 100
[2021-11-03 05:46] LABS: Hypochromia Slight; Microcytosis Slight
[2021-11-03] MEDS: POTASSIUM BICARB EFFERVESCENT 20 MEQ TAB.EFF PO SCH ×3 (08:51→20:38)
[2021-11-03] MEDS: SEVELAMER CARBONATE 800 MG TABLET PO SCH ×3 (08:51→17:11)
[2021-11-03] MEDS: FERROUS SULFATE 325 MG TABLET PO SCH (08:51)
[2021-11-03] MEDS: ASPIRIN EC 81 MG TABLET PO SCH (08:51)
[2021-11-03] MEDS: DOCUSATE SODIUM 100 MG CAPSULE PO SCH ×2 (08:51→20:38)
[2021-11-03] MEDS: INSULIN REGULAR 100 UNIT/ML SUBCUT SCH ×4 (08:52→20:38)
[2021-11-03] MEDS: PANTOPRAZOLE 40 MG TABLET PO SCH (08:52)
[2021-11-03] MEDS: carvediloL 6.25 MG TABLET PO SCH ×2 (08:53→17:11)
[2021-11-03] MEDS: SODIUM HYPOCHLORITE 0.25% IRRIG 473 ML BOTTLE TOP SCH (08:53)
[2021-11-03] MEDS: ATORVASTATIN 80 MG TABLET PO SCH (20:37)
[2021-11-04] MEDS: ALBUTEROL/IPRATROPIUM 3 ML NEB RESP TX SCH ×4 (00:47→20:07)
[2021-11-04] MEDS: HEPARIN 5,000 UNIT/1 ML VIAL SUBCUT SCH ×2 (05:17→17:23)
[2021-11-04 05:32] LABS: Basophils # 0.2 10*3/uL (0.0-0.2); Basophils % 1.5 % (0.0-0.8); Eosinophils # 0.5 10*3/uL (0.0-0.87); Eosinophils % 3.2 % (0.00-10.9); Hematocrit 28.1 VOL% (42.0-52.0); Hemoglobin 8.6 GM/DL (14.0-18.0); Immature Granulocytes % 1.7 %; Immature Granulocytes Absolute 0.24 #; Lymphocytes # 3.2 10*3/uL (1.4-4.0); Lymphocytes % 22.2 % (21.2-54.2); Mean Corpuscular HGB Conc 30.6 GM/DL (32-36); Mean Corpuscular Volume 85.2 FL (87-102); Monocytes # 2.5 10*3/uL (0.11-0.8); Monocytes % 16.9 % (1.7-12.7); Neutrophils % 54.5 % (38.7-73.9); Platelet Count 413 T/CUMM (130-400); Red Cell Distribution Width 18.6 % (9.3-17.3); White Blood Count 14.5 T/CUMM (4-12)
[2021-11-04 05:51] LABS: Eosinophils 7 % (0-10); Hypochromia Slight; Lymphocytes 22 % (20-55); Microcytosis Slight; Platelet Estimate Adequate; Total Cells Counted 100
[2021-11-04 05:51] LABS: Calcium 8.5 MG/DL (8.5-10.1); Osmolality,Calculated 284.8 MOS/KG (273-304); Potassium 3.4 MMOL/L (3.5-5.1)
[2021-11-04] MEDS: INSULIN REGULAR 100 UNIT/ML SUBCUT SCH ×4 (09:12→20:35)
[2021-11-04] MEDS: carvediloL 6.25 MG TABLET PO SCH ×2 (09:13→16:19)
[2021-11-04] MEDS: SEVELAMER CARBONATE 800 MG TABLET PO SCH ×3 (09:13→16:17)
[2021-11-04] MEDS: ASPIRIN EC 81 MG TABLET PO SCH (09:15)
[2021-11-04] MEDS: PANTOPRAZOLE 40 MG TABLET PO SCH (09:16)
[2021-11-04] MEDS: DOCUSATE SODIUM 100 MG CAPSULE PO SCH ×2 (09:16→20:35)
[2021-11-04] MEDS: POTASSIUM BICARB EFFERVESCENT 20 MEQ TAB.EFF PO SCH ×3 (09:16→20:34)
[2021-11-04] MEDS: FERROUS SULFATE 325 MG TABLET PO SCH (09:16)
[2021-11-04] MEDS ORDERED: LIDOCAINE 1%/EPI INJ 20 ML VIAL ONE (09:42)
[2021-11-04] MEDS ORDERED: BUPIVACAINE MPF 0.25% 10 ML VIAL ONE (09:42)
[2021-11-04] MEDS ORDERED: fentaNYL 100 MCG/2 ML VIAL ONE (09:59)
[2021-11-04] MEDS ORDERED: LIDOCAINE 2% 5 ML VIAL ONE (09:59)
[2021-11-04] MEDS ORDERED: propofoL 200 MG/20 ML VIAL IV ONE (09:59)
[2021-11-04] MEDS ORDERED: MIDAZOLAM 2 MG/2 ML VIAL ONE (10:00)
[2021-11-04] MEDS ORDERED: SODIUM CHLORIDE 0.9% 250 ML IV SCH (10:00)
[2021-11-04] MEDS ORDERED: KETAMINE 500 MG/10 ML VIAL ONE (10:25)
[2021-11-04] MEDS: SODIUM HYPOCHLORITE 0.25% IRRIG 473 ML BOTTLE TOP SCH (12:54)
[2021-11-04] MEDS: ACETAMINOPHEN 325 MG TABLET PO PRN (18:14)
[2021-11-04] MEDS: ATORVASTATIN 80 MG TABLET PO SCH (20:35)
[2021-11-05] MEDS: ALBUTEROL/IPRATROPIUM 3 ML NEB RESP TX SCH ×3 (00:45→12:52)
[2021-11-05] MEDS: HEPARIN 5,000 UNIT/1 ML VIAL SUBCUT SCH (05:55)
[2021-11-05 06:25] LABS: Basophils # 0.2 10*3/uL (0.0-0.2); Basophils % 1.6 % (0.0-0.8); Eosinophils # 0.4 10*3/uL (0.0-0.87); Eosinophils % 3.5 % (0.00-10.9); Hematocrit 28.1 VOL% (42.0-52.0); Hemoglobin 8.4 GM/DL (14.0-18.0); Immature Granulocytes % 1.6 %; Immature Granulocytes Absolute 0.17 #; Lymphocytes # 2.5 10*3/uL (1.4-4.0); Lymphocytes % 23.3 % (21.2-54.2); Mean Corpuscular HGB Conc 29.9 GM/DL (32-36); Mean Corpuscular Volume 85.9 FL (87-102); Mean Platelet Volume 9.3 FL (9.6-12.0); Monocytes # 1.9 10*3/uL (0.11-0.8); Monocytes % 17.4 % (1.7-12.7); Neutrophils % 52.6 % (38.7-73.9); Platelet Count 423 T/CUMM (130-400); Red Blood Count 3.27 MC/CUMM (3.8-5.5); Red Cell Distribution Width 18.6 % (9.3-17.3); White Blood Count 10.9 T/CUMM (4-12)
[2021-11-05 06:42] LABS: Calcium 8.5 MG/DL (8.5-10.1); Osmolality,Calculated 282.4 MOS/KG (273-304); Potassium 3.5 MMOL/L (3.5-5.1)
[2021-11-05 06:54] LABS: Eosinophils 7 % (0-10); Hypochromia Slight; Lymphocytes 23 % (20-55); Microcytosis Slight; Platelet Estimate Adequate; Total Cells Counted 100
[2021-11-05] MEDS: INSULIN REGULAR 100 UNIT/ML SUBCUT SCH ×2 (09:17→12:34)
[2021-11-05] MEDS: SEVELAMER CARBONATE 800 MG TABLET PO SCH ×2 (09:17→13:33)
[2021-11-05] MEDS: POTASSIUM BICARB EFFERVESCENT 20 MEQ TAB.EFF PO SCH (09:18)
[2021-11-05] MEDS: carvediloL 6.25 MG TABLET PO SCH (12:35)
[2021-11-05] MEDS: SODIUM HYPOCHLORITE 0.25% IRRIG 473 ML BOTTLE TOP SCH (13:32)
[2021-11-05] MEDS: DOCUSATE SODIUM 100 MG CAPSULE PO SCH (13:32)
[2021-11-05] MEDS: ASPIRIN EC 81 MG TABLET PO SCH (13:32)
[2021-11-05] MEDS: FERROUS SULFATE 325 MG TABLET PO SCH (13:32)
[2021-11-05] MEDS: PANTOPRAZOLE 40 MG TABLET PO SCH (13:33)
[2021-11-05 13:36] VITALS: BP 146/84
== END 2021-11-05 16:15 | disposition swing bed (61) | DRG 710 ==
LOC: N.ED 14:25 → SUATTDRO 17:05 → N.EDINP 17:05 → N.3E 17:33 → N.CC 17:52 → N.3E 10-17 17:20
PROVIDERS: ADMIT Internal Medicine; ATTEND Internal Medicine